=== PATIENT | female | born 1985 | race African-American/Black ===

== ENCOUNTER 2016-11-12 19:59 | Emergency (ER) | payer OTHER ==
[~2016-11-12] VITALS: Ht 175.3 cm; Wt 81.6 kg
[~2016-11-12 19:59] MED LIST: METH-37 PO; TRAM-29 PO
--- NOTE | 2016-11-12 21:37 | PHYS DOC ---
Past Medical History Past Medical History: Asthma Past Surgical History: Appendectomy, Other Additional Past Surgical Histo: tubal Alcohol Use: Rarely Drug Use: None Adult General Chief Complaint Chief Complaint: MECHANICAL FALL HPI HPI Patient is a 31 year old female who presents status post fall on [place]. Patient reports she simply lost her balance and fell, hitting her head. She did not lose consciousness. Since then however, she has been having some pain in her head and neck. She is also having some memory trouble and nausea. No numbness or weakness. Patient has not taken anything for symptoms at home. Review of Systems Review of Systems Constitutional: Denies fever or chills Eyes: Denies change in visual acuity or eye pain HENT: Denies nasal congestion or sore throat Neck: Neck pain Respiratory: Denies cough or shortness of breath Cardiovascular: Denies chest pain GI: Nausea. Denies abdominal pain, vomiting, bloody stools or diarrhea : Denies dysuria or hematuria Musculoskeletal: Back soreness. Denies joint pain Integument: Denies rash or skin lesions Neurologic: Headache, memory problems. Denies focal weakness or sensory changes Current Medications Current Medications Current Medications Medications (Trade) Dose Ordered Sig/Fabiana Start Time Stop Time Status Last Admin Dose Admin Acetaminophen (Tylenol) 1,000 mg 1X ONCE 11/12/16 21:45 11/12/16 21:46 DC 11/12/16 23:02 1,000 MG Ondansetron HCl (Zofran Odt) 4 mg 1X ONCE 11/12/16 21:45 11/12/16 21:46 DC 11/12/16 23:01 4 MG Allergies Allergies Allergies Coded Allergies Type Severity Reaction Last Updated Verified No Known Drug Allergies 06/13/14 No Physical Exam Physical Exam Constitutional: Well developed, well nourished, no acute distress, non-toxic appearance HENT: Normocephalic, atraumatic, bilateral external ears normal Eyes: PERRL, EOMI, conjunctiva normal, no discharge Neck: Normal range of motion, no stridor. Mild generalized posterior TTP, no stepoff or deformity Cardiovascular: Heart rate normal, regular rhythm, no murmur Lungs & Thorax: Bilateral breath sounds clear to auscultation Abdomen: Bowel sounds normal, soft, non-distended, no TTP Skin: Warm, dry, no erythema, no rash Back: No midline tenderness, no stepoff or deformity Extremities: No obvious deformity, no edema Neurologic: Alert and oriented X 3, GCS 15, CN II-XII grossly intact, strength intact and symmetrical throughout, sensation to light touch intact throughout, no dystaxia Current Patient Data Vital Signs Vital Signs Date Time Temp Pulse Resp B/P Pulse Ox O2 Delivery O2 Flow Rate FiO2 11/12/16 23:45 55 100/58 100 Room Air 11/12/16 22:56 18 11/12/16 20:55 98.8 98.8 Lab Values Laboratory Tests Test 11/12/16 21:10 Urine Test Negative (NEG) EKG EKG [] Radiology/Procedures Radiology/Procedures CT C-spine: Impression: No fracture or subluxation cervical vertebrae is seen. CT head: IMPRESSION No acute intracranial abnormality is seen. Course & Med Decision Making Course & Med Decision Making Pertinent Labs and Imaging studies reviewed. (See chart for details) Patient is 31-year-old female who presents with headache, memory problems after fall on [employer] [place]. Possibly sustained a concussion. Will obtain CT head and CT C-spine to rule out more serious pathology. Tylenol and Zofran ordered for relief of symptoms. Imaging results as above. Discussed results with patient , as well as concussion precautions. Patient discharged home with instructions for follow-up and return precautions. Dragon Disclaimer Dragon Disclaimer This electronic medical record was generated, in whole or in part, using a voice recognition dictation system. Departure Departure Impression: Primary Impression: Concussion Disposition: 01 HOME, SELF-CARE Condition: STABLE Referrals: ANGELINE SABILLON MD (PCP) Patient Instructions: Concussion and Brain Injury Additional Instructions: Thank you for allowing us to provide care today in the Emergency Department. Take the provided medication as directed. You can use acetaminophen, ibuprofen, or naproxen for any further pain. Follow the directions on the label. Schedule a follow up appointment with your primary care doctor. Return promptly to the Emergency Department if you develop any new or concerning symptoms. PEYTON PALOMINO MD Nov 12, 2016 21:37
[2016-11-12] MEDS ORDERED: ACETAMINOPHEN 500 MG TABLET PO ONE (21:45)
[2016-11-12] MEDS ORDERED: ONDANSETRON ODT 4 MG TAB.RAPDIS PO ONE (21:45)
[2016-11-12 21:58] LABS: NEG OBC UR NEG; POS OBC UR POS
--- NOTE | 2016-11-12 22:47 | RAD ---
PROCEDURE CT scan of the head without contrast 11/12/2026 HISTORY Head trauma with weakness. TECHNIQUE Unenhanced contiguous, 5 millimeter axial sections were obtained through the head. One or more of the following individualized dose reduction techniques were utilized for this study: 1. Automated exposure control. 2. Adjustment of the mA and/or kV according to patient size. 3. Use of iterative reconstruction technique. FINDINGS The ventricles and sulci are within normal limits in size and configuration. No area of abnormal attenuation is seen involving the brain parenchyma. No extra-axial fluid collection is seen. No skull fracture is noted. IMPRESSION No acute intracranial abnormality is seen. Electronically signed by: Tay Reilly MD (Nov 12, 2016 22:45:51)
[2016-11-12 23:45] VITALS: BP 100/58
== END 2016-11-12 23:54 | disposition home or self-care (01) ==
LOC: ER 19:59
DX: S06.0X0A Concussion without loss of consciousness, initial encounter (principal); J45.909 Unspecified asthma, uncomplicated; W18.09XA Striking against other object with subsequent fall, initial encounter; Y93.89 Activity, other specified; Y99.8 Other external cause status; Y92.89 Other specified places as the place of occurrence of the external cause
CPT/HCPCS: 70450; 72125; 81025; 99284; Q0162; 99285-25

== ENCOUNTER 2017-04-11 16:56 | Emergency (ER) | payer OTHER ==
[~2017-04-11] VITALS: Ht 172.7 cm; Wt 81.6 kg
[2017-04-11 17:10] VITALS: BP 114/70
--- NOTE | 2017-04-11 17:22 | PHYS DOC ---
Past Medical History Past Medical History: Asthma Past Surgical History: Appendectomy, Other Additional Past Surgical Histo: tubal Alcohol Use: Rarely Drug Use: None Adult General Chief Complaint Chief Complaint: SORE THROAT HPI HPI Patient is a 31 year old female presents emergency department stating that she developed a cough congestion with bilateral irritated eyes with generalized body aches and discomfort last night after working. Patient states she's been taken some generic Tylenol for the pain and discomfort. She states that she does have a history of smoking him which she has not been able to smoke much within the last day and a half. She states that she has had chills unsure if she 's had fevers. She states the productive cough this been yellow in color. Patient states she's had a decreased appetite as been drinking plenty of fluids. Review of Systems Review of Systems Constitutional: Denies fever or chills [] Eyes: Denies change in visual acuity, redness, or eye pain [] HENT: nasal congestion and sore throat [] Respiratory: cough denies shortness of breath [] Cardiovascular: No additional information not addressed in HPI [] GI: Denies abdominal pain, nausea, vomiting, bloody stools or diarrhea [] : Denies dysuria or hematuria [] Musculoskeletal: Denies back pain or joint pain [] Integument: Denies rash or skin lesions [] Neurologic: Denies headache, focal weakness or sensory changes [] Endocrine: Denies polyuria or polydipsia [] Allergies Allergies Allergies Coded Allergies Type Severity Reaction Last Updated Verified No Known Drug Allergies 06/13/14 No Physical Exam Physical Exam Constitutional: Well developed, well nourished, no acute distress, non-toxic appearance. [] HENT: Normocephalic, atraumatic, bilateral external ears normal, oropharynx moist, no oral exudates, nose normal. Bilateral tympanic membranes appear to be normal. Throat with redness no erythematous no exudate noted. Eyes: PERRLA, EOMI, conjunctiva normal, no discharge. [] Neck: Normal range of motion, no tenderness, supple, no stridor. [] Cardiovascular:Heart rate regular rhythm, no murmur [] Lungs & Thorax: Bilateral breath sounds clear to auscultation [] Skin: Warm, dry, no erythema, no rash. [] Back: No tenderness Extremities: No tenderness, no cyanosis, no clubbing, ROM intact, no edema. [] Neurologic: Alert and oriented X 3, normal motor function, normal sensory function, no focal deficits noted. [] Psychologic: Affect normal, judgement normal, mood normal. [] Current Patient Data Vital Signs Vital Signs Date Time Temp Pulse Resp B/P (MAP) Pulse Ox O2 Delivery O2 Flow Rate FiO2 04/11/17 17:10 98.8 69 20 98 Room Air 98.8 EKG EKG [] Radiology/Procedures Radiology/Procedures [] Course & Med Decision Making Course & Med Decision Making Pertinent Labs and Imaging studies reviewed. (See chart for details) Spoke with patient regards to stop smoking. Also spoke with patient in regards to a viral type infection. Spoke with her in regards to using Mucinex DM over- the-counter to help with nasal congestion and cough. Tylenol or ibuprofen for fever chills or generalized body aches and discomfort. Recommended plenty of fluids such as water or Gatorade or propel. Signs and symptoms to return back to emergency department provided. Patient will be discharged home in stable condition. [] Dragon Disclaimer Dragon Disclaimer This electronic medical record was generated, in whole or in part, using a voice recognition dictation system. Departure Departure Impression: Primary Impression: Viral infection Disposition: 01 HOME, SELF-CARE Condition: STABLE Referrals: ANGELINE SABILLON MD (PCP) Patient Instructions: Viral Infections, [id number] Additional Instructions: Activity as tolerated. Drink plenty of fluids such as water or Gatorade or propel. Tylenol or ibuprofen for either, chills or malaise body aches and discomfort. Mucinex DM [id number] to help with congestion and cough. Take instructed by architectural examiner. Follow-up through primary care physician in the next 5-7 days. Return back to emergency department for signs and symptoms of become worse. PUSHPA HULL APRN Apr 11, 2017 17:21
[2017-04-11] MEDS ORDERED: IBUPROFEN 800 MG TABLET. PO ONE (17:30)
== END 2017-04-11 17:27 | disposition home or self-care (01) ==
LOC: ER 16:56
DX: B34.9 Viral infection, unspecified (principal); H57.8 Other specified disorders of eye and adnexa; J45.909 Unspecified asthma, uncomplicated; F17.200 Nicotine dependence, unspecified, uncomplicated; Z90.49 Acquired absence of other specified parts of digestive tract
CPT/HCPCS: 99282

== ENCOUNTER 2017-07-22 21:32 | Emergency (ER) | payer OTHER ==
[~2017-07-22] VITALS: Ht 175.3 cm; Wt 81.6 kg
[~2017-07-22 21:32] MED LIST changes: -TRAM-29 PO; +TRAM-48 PO
--- NOTE | 2017-07-22 21:34 | PHYS DOC ---
Past Medical History Past Medical History: Asthma Past Surgical History: Appendectomy, Other Additional Past Surgical Histo: tubal Alcohol Use: Rarely Drug Use: None Adult General Chief Complaint Chief Complaint: HEADACHE HPI HPI Patient is a 32 year old -[place] female who presents with multiple complaints. She states she's had a headache in the left side is been going on for last 4 days. She says this is her normal headache that she gets time to time. She states usually Aleve takes away her headaches and she's been taking it today but has not resolved. She states her nose feels very congested and she is concerned she might have a sinus infection. She denies any confusion but states she's been having "racing thoughts". She denies "bad thoughts". She also has mild right-sided chest pain, she denies it makes it better or worse. She states it's a sharp stabbing pain and does not radiate. She states her mom had a heart attack and the age of 70. She does smoke half pack a day she's done that for the last 10 years. She states she has a history of asthma also. She denies a cough, nausea vomiting or diaphoresis. Review of Systems Review of Systems Constitutional: Denies fever or chills [] Eyes: Denies change in visual acuity, redness, or eye pain [] HENT: Denies nasal congestion or sore throat [] Respiratory: Denies cough or shortness of breath [] Cardiovascular: No additional information not addressed in HPI [] GI: Denies abdominal pain, nausea, vomiting, bloody stools or diarrhea [] : Denies dysuria or hematuria [] Musculoskeletal: Denies back pain or joint pain [] Integument: Denies rash or skin lesions [] Neurologic: Positive for headache, Denies focal weakness or sensory changes [] Endocrine: Denies polyuria or polydipsia [] Current Medications Current Medications Current Medications Medications (Trade) Dose Ordered Sig/[facility] Start Time Stop Time Status Last Admin Dose Admin Acetaminophen (Tylenol) 1,000 mg 1X ONCE 07/22/17 22:00 07/22/17 22:01 DC 07/22/17 22:10 1,000 MG Albuterol/ Ipratropium (Duoneb) 3 ml 1X ONCE 07/22/17 23:45 07/22/17 23:46 DC 07/22/17 23:41 3 ML Cetirizine HCl (ZyrTEC) 10 mg DAILY 07/22/17 22:00 07/22/17 22:10 10 MG Allergies Allergies Allergies Coded Allergies Type Severity Reaction Last Updated Verified No Known Drug Allergies 06/13/14 No Physical Exam Physical Exam Constitutional: Well developed, well nourished, no acute distress, non-toxic appearance. [] HENT: Normocephalic, atraumatic, bilateral external ears normal, oropharynx moist, no oral exudates, nose normal. [] Eyes: PERRLA, EOMI, conjunctiva normal, no discharge. [] Neck: Normal range of motion, no tenderness, supple, no stridor. [] Cardiovascular:Heart rate regular rhythm, no murmur [] Lungs & Thorax: Bilateral breath sounds clear to auscultation [] Abdomen: Bowel sounds normal, soft, no tenderness, no masses, no pulsatile masses. [] Skin: Warm, dry, no erythema, no rash. [] Back: No tenderness, no CVA tenderness. [] Extremities: No tenderness, no cyanosis, no clubbing, ROM intact, no edema. [] Neurologic: Alert and oriented X 3, normal motor function, normal sensory function, no focal deficits noted. [] Psychologic: Affect normal, judgement normal, mood normal. [] Current Patient Data Vital Signs Vital Signs Date Time Temp Pulse Resp B/P (MAP) Pulse Ox O2 Delivery O2 Flow Rate FiO2 07/22/17 23:41 99 Room Air 07/22/17 21:40 98.8 88 18 98.8 Lab Values Laboratory Tests Test 07/22/17 20:49 07/22/17 21:41 07/22/17 21:57 07/23/17 00:22 POC Urine HCG, Qualitative Hcg negative (Negative) Urine Collection Type Unknown Urine Color Yellow Urine Clarity Clear Urine pH 6.5 Urine Specific [place] 1.020 Urine Protein Negative mg/dL (NEG-TRACE) Urine Glucose (UA) Negative mg/dL (NEG) Urine Ketones (Stick) Negative mg/dL (NEG) Urine Blood Negative (NEG) Urine Nitrite Negative (NEG) Urine Bilirubin Negative (NEG) Urine Urobilinogen Dipstick 1.0 mg/dL (0.2 mg/dL) Urine Leukocyte Esterase Negative (NEG) Urine RBC 0 /HPF (0-2) Urine WBC Rare /HPF (0-4) Urine Squamous Epithelial Cells Few /LPF Urine Bacteria 0 /HPF (0-FEW) Urine Mucus Marked /LPF White Blood Count 9.2 x10^3/uL (4.0-11.0) Red Blood Count 4.05 x10^6/uL (3.50-5.40) Hemoglobin 11.5 g/dL (12.0-15.5) L Hematocrit 33.8 % (36.0-47.0) L Mean Corpuscular Volume 84 fL (79-100) Mean Corpuscular Hemoglobin 28 pg (25-35) Mean Corpuscular Hemoglobin Concent 34 g/dL (31-37) Red Cell Distribution Width 12.6 % (11.5-14.5) Platelet Count 295 x10^3/uL (140-400) Neutrophils (%) (Auto) 46 % (31-73) Lymphocytes (%) (Auto) 42 % (24-48) Monocytes (%) (Auto) 8 % (0-9) Eosinophils (%) (Auto) 2 % (0-3) Basophils (%) (Auto) 1 % (0-3) Neutrophils # (Auto) 4.3 x10^3uL (1.8-7.7) Lymphocytes # (Auto) 3.9 x10^3/uL (1.0-4.8) Monocytes # (Auto) 0.8 x10^3/uL (0.0-1.1) Eosinophils # (Auto) 0.2 x10^3/uL (0.0-0.7) Basophils # (Auto) 0.1 x10^3/uL (0.0-0.2) Prothrombin Time 12.9 SEC (11.7-14.0) Prothrombin Time INR 1.0 (0.8-1.1) Sodium Level 140 mmol/L (136-145) Potassium Level 3.5 mmol/L (3.5-5.1) Chloride Level 103 mmol/L (98-107) Carbon Dioxide Level 26 mmol/L (21-32) Anion Gap 11 (6-14) Blood Urea Nitrogen 11 mg/dL (7-20) Creatinine 0.6 mg/dL (0.6-1.0) Estimated GFR (Cockcroft-Gault) 141.1 Glucose Level 112 mg/dL (70-99) H Calcium Level 9.1 mg/dL (8.5-10.1) Total Bilirubin 0.2 mg/dL (0.2-1.0) Direct Bilirubin < 0.1 mg/dL (0.0-0.2) Aspartate Amino Transferase (AST) 13 U/L (15-37) L Alanine Aminotransferase (ALT) 18 U/L (14-59) Alkaline Phosphatase 91 U/L (46-116) Creatine Kinase 157 U/L (26-192) Creatine Kinase MB (Mass) 1.3 ng/mL (0.0-3.6) Creatine Kinase MB Relative Index 0.8 % (0-4) Troponin I Quantitative < 0.017 ng/mL (0.000-0.055) < 0.017 ng/mL (0.000-0.055) US-Jei-Q-Type Natriuretic Peptide 25 pg/mL (0-124) Total Protein 7.5 g/dL (6.4-8.2) Albumin 3.4 g/dL (3.4-5.0) Lipase 100 U/L (73-393) Laboratory Tests 07/22/17 21:57 Laboratory Tests 07/22/17 21:57 EKG EKG EKG shows sinus rhythm with rate of [address] elevations, T-wave inversions noted in leads 3, normal axis, QTC 406 ms, as interpreted by me. EKG similar to one performed on March 27, 2015 with T-wave inversions in lead 3 and V3 with tachycardia. Radiology/Procedures Radiology/Procedures One view chest x-ray did not show any focal consolidations, pneumothorax, or bony abnormalities, as interpreted by me. Impressions: Headache Course & Med Decision Making Course & Med Decision Making Pertinent Labs and Imaging studies reviewed. (See chart for details) Her headache is likely caused from sinusitis. She felt better with Tylenol and Zyrtec. She can continue these at home. She's also be discharged with a Z-Estevan. Her chest discomfort resolved after an albuterol treatment. I did repeat a 3 hour troponin which was also negative. She is instructed to continue using her albuterol at home as needed. Return precautions given. She is agreeable to the plan and being discharged in stable condition at this time. Dragon Disclaimer Dragon Disclaimer This electronic medical record was generated, in whole or in part, using a voice recognition dictation system. Departure Departure Impression: Primary Impression: Head ache Disposition: 01 HOME, SELF-CARE Condition: STABLE Referrals: ANGELINE SABILLON MD (PCP) Patient Instructions: Sinus Headache, [id number] Additional Instructions: Your headache improved with Tylenol and Zyrtec. You likely have a sinus type headache. Being discharged home. You can take Tylenol and purchase over-the- counter Zyrtec to help with her symptoms. You are also being discharged with a Z -Estevan which is an antibiotic. Please follow instructions on the prescription. Your chest discomfort improved with albuterol and your blood work did not show any acute abnormalities. Please follow-up with her primary care physician within the next few days. If your symptoms return please return back to ER.Use your inhaler as needed at home for your chest discomfort. Scripts Albuterol Sulfate (PROAIR HFA INHALER) 8.5 Gm Hfa.aer.ad 1-2 PUFF INH PRN Q6HRS Y for SHORTNESS OF BREATH, #1 INHALER 1 Refill Prov: MELISSA SEBASTIAN MD 07/23/17 Azithromycin (AZITHROMYCIN TABLET) 250 Mg Tablet 1 PKG PO UD, #6 TAB Prov: MELISSA SEBASTIAN MD 07/23/17 Problem Qualifiers Primary Impression: Head ache Headache type: unspecified Headache chronicity pattern: episodic headache Intractability: not intractable Qualified Codes: R51 - Headache MELISSA SEBASTIAN MD Jul 22, 2017 21:34
[2017-07-22 21:55] LABS: BILIRUBIN,URINE NEGATIVE (NEG); GLUCOSE,URINE NEGATIVE (NEG); NITRITE,URINE NEGATIVE (NEG); PH,URINE 6.5; PROTEIN,URINE NEGATIVE (NEG-TRACE)
[2017-07-22] MEDS ORDERED: IPRATRPIUM/ALBUTEROL 0.5/2.5MG 3 ML NEBU. NEB ONE ×3 (22:00→23:45)
[2017-07-22] MEDS ORDERED: CETIRIZINE HCL 10 MG TABLET. PO SCH (22:00)
[2017-07-22] MEDS ORDERED: ACETAMINOPHEN 500 MG TABLET PO ONE (22:00)
[2017-07-22 22:04] LABS: BACTERIA,URINE 0 /HPF (0-FEW); RBC,URINE 0 /HPF (0-2); SQUAMOUS EPITHELIAL CELL,UR FEW /LPF; WBC,URINE RARE /HPF (0-4)
[2017-07-22 22:11] LABS: BASO # 0.1 x10^3/uL (0.0-0.2); BASO % 1 % (0-3); EOS % 2 % (0-3); HEMATOCRIT 33.8 % (36.0-47.0); HEMOGLOBIN 11.5 g/dL (12.0-15.5); LYMPH # 3.9 x10^3/uL (1.0-4.8); LYMPH % 42 % (24-48); MEAN CORPUSCULAR HEMOGLOBIN 28 pg (25-35); MEAN CORPUSCULAR HGB CONC 34 g/dL (31-37); MEAN CORPUSCULAR VOLUME 84 fL (79-100); MONO % 8 % (0-9); NEUT % 46 % (31-73); PLATELET COUNT 295 x10^3/uL (140-400); RED BLOOD COUNT 4.05 x10^6/uL (3.50-5.40); RED CELL DISTRIBUTION WIDTH 12.6 % (11.5-14.5); WHITE BLOOD COUNT 9.2 x10^3/uL (4.0-11.0)
[2017-07-22 22:16] LABS: PROTHROMBIN TIME PATIENT 12.9 SEC (11.7-14.0)
[2017-07-22 22:21] LABS: ANION GAP 11 (6-14); BLOOD UREA NITROGEN 11 mg/dL (7-20); CALCIUM 9.1 mg/dL (8.5-10.1); CARBON DIOXIDE 26 mmol/L (21-32); CHLORIDE 103 mmol/L (98-107); CREATININE 0.6 mg/dL (0.6-1.0); GFR 141.1; GLUCOSE 112 mg/dL (70-99); POTASSIUM 3.5 mmol/L (3.5-5.1); SODIUM 140 mmol/L (136-145)
[2017-07-22 22:28] LABS: ALBUMIN 3.4 g/dL (3.4-5.0); ALK PHOS 91 U/L (46-116); ALT (SGPT) 18 U/L (14-59); AST (SGOT) 13 U/L (15-37); DIRECT BILIRUBIN < 0.1 mg/dL (0.0-0.2); TOTAL BILIRUBIN 0.2 mg/dL (0.2-1.0); TOTAL PROTEIN 7.5 g/dL (6.4-8.2)
[2017-07-22 22:33] LABS: CKMB MASS 1.3 ng/mL (0.0-3.6)
[2017-07-23] MEDS ORDERED: AZIT250T6 PO (01:36)
[2017-07-23 01:39] VITALS: BP 112/61
[2017-07-23] MEDS ORDERED: PROAIR HFA8.5 GM INH (01:41)
--- NOTE | 2017-07-23 07:14 | EKG ---
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
--- NOTE | 2017-07-23 07:30 | RAD ---
Portable chest, 07/22/2017: History: Shortness of breath, anxiety, chest pain Comparison is made to a study from 05/19/2016. The heart size and pulmonary vascularity are normal. No pulmonary or infiltrates seen. There is no evidence of pleural fluid. IMPRESSION: No acute cardiopulmonary abnormality is detected.
== END 2017-07-23 02:03 | disposition home or self-care (01) ==
LOC: ER 21:32
DX: R51 Headache (principal); R09.81 Nasal congestion; R07.89 Other chest pain; J45.909 Unspecified asthma, uncomplicated; F17.200 Nicotine dependence, unspecified, uncomplicated
CPT/HCPCS: 36415; 71010; 80048; 80076; 81001; 81025; 82553; 83690; 83880; 84484; 85025; 85610; 93005; 94250; 94640; 99285; J7620

== ENCOUNTER 2018-03-31 19:35 | Emergency (ER) | payer OTHER ==
[2018-03-31 20:18] LABS: URINE HCG POC HCG NEGATIVE (Negative)
== END 2018-03-31 20:50 | disposition home or self-care (01) ==
LOC: ER 19:35
DX: L70.0 Acne vulgaris (principal); R11.0 Nausea; J45.909 Unspecified asthma, uncomplicated
CPT/HCPCS: 81025; 99283

== ENCOUNTER 2018-07-05 23:36 | Emergency (ER) | payer OTHER ==
[~2018-07-05] VITALS: Ht 167.6 cm; Wt 72.6 kg
[~2018-07-05 23:36] MED LIST changes: +AZIT250T6 PO; +ONDA4TAB10 SL; +PROAIR HFA8.5 GM INH
[2018-07-05] MEDS ORDERED: IV NORMAL SALINE 1000ML BAG 1,000 ML IV SCH (23:45)
[2018-07-05] MEDS ORDERED: ONDANSETRON PF 4 MG/2 ML VIAL. IV ONE (23:55)
[2018-07-06 00:09] LABS: BASO % 1 % (0-3); EOS # 0.2 x10^3/uL (0.0-0.7); EOS % 3 % (0-3); HEMOGLOBIN 11.8 g/dL (12.0-15.5); LYMPH # 3.1 x10^3/uL (1.0-4.8); LYMPH % 42 % (24-48); MEAN CORPUSCULAR HEMOGLOBIN 29 pg (25-35); MEAN CORPUSCULAR HGB CONC 34 g/dL (31-37); MEAN CORPUSCULAR VOLUME 86 fL (79-100); MONO # 0.5 x10^3/uL (0.0-1.1); MONO % 6 % (0-9); NEUT # 3.6 x10^3uL (1.8-7.7); NEUT % 48 % (31-73); PLATELET COUNT 401 x10^3/uL (140-400); RED BLOOD COUNT 4.08 x10^6/uL (3.50-5.40); RED CELL DISTRIBUTION WIDTH 14.5 % (11.5-14.5); WHITE BLOOD COUNT 7.4 x10^3/uL (4.0-11.0)
[2018-07-06 00:24] LABS: CALCIUM 8.7 mg/dL (8.5-10.1); CREATININE 0.7 mg/dL (0.6-1.0); GFR 118.1; POTASSIUM 3.5 mmol/L (3.5-5.1)
[2018-07-06 00:29] LABS: ALBUMIN 3.6 g/dL (3.4-5.0); ALBUMIN/GLOBULIN RATIO 0.8 (1.0-1.7); MAGNESIUM 2.1 mg/dL (1.8-2.4); TOTAL BILIRUBIN 0.2 mg/dL (0.2-1.0); TOTAL PROTEIN 8.1 g/dL (6.4-8.2)
[2018-07-06 00:47] LABS: BILIRUBIN,URINE NEGATIVE (NEG); CLARITY,URINE CLOUDY; COLOR,URINE YELLOW; NITRITE,URINE NEGATIVE (NEG); PH,URINE 5.5; PROTEIN,URINE NEGATIVE (NEG-TRACE); UROBILINOGEN,URINE 0.2 mg/dL (0.2 mg/dL)
[2018-07-06 00:52] LABS: BARBITURATES NEG (NEG); BENZODIAZEPINES NEG (NEG); CANNABINOIDS NEG (NEG); COCAINE NEG (NEG); METHADONE NEG (NEG); OPIATES NEG (NEG); PHENCYCLIDINE NEG (NEG)
[2018-07-06 01:10] LABS: AMPHETAMINE/METHAMPHETAMINE NEG (NEG)
[2018-07-06 01:14] LABS: BACTERIA,URINE 0 /HPF (0-FEW); RBC,URINE 0 /HPF (0-2); SQUAMOUS EPITHELIAL CELL,UR FEW /LPF; WBC,URINE 0 /HPF (0-4)
[2018-07-06] MEDS ORDERED: NAPR-683 PO (01:18)
--- NOTE | 2018-07-06 01:18 | PHYS DOC ---
Past Medical History Past Medical History: Asthma, Diabetes-Type II Past Surgical History: Appendectomy, Other Additional Past Surgical Histo: tubal Alcohol Use: Rarely Drug Use: None Adult General Chief Complaint Chief Complaint: ALCOHOL INTOXICATION HPI HPI Patient is a 32-year-old female who presents with report of chronic right arm pain and states that she had a couple of drinks of alcohol tonight. She states that she did not drink very much. Patient is noted to have very slurred speech however. She denies chest pain or shortness of breath. She also denies any abdominal pain, nausea or vomiting. She rates the pain in her shoulder and a 7 out of 10. She states the pain is worsened with movement of the shoulder and palpation. She denies any recent injuries. Review of Systems Review of Systems Constitutional: Denies fever or chills [] Respiratory: Denies cough or shortness of breath [] Cardiovascular: Denies chest pain[] GI: Denies abdominal pain, nausea, vomiting [] Musculoskeletal: Complains of right shoulder and arm pain, chronic[] All other systems were reviewed and found to be within normal limits, except as documented in this note. Current Medications Current Medications Current Medications Medications (Trade) Dose Ordered Sig/Fabiana Start Time Stop Time Status Last Admin Dose Admin Ondansetron HCl (Zofran) 4 mg 1X ONCE 07/05/18 23:55 07/05/18 23:56 DC 07/05/18 23:55 4 MG Sodium Chloride 1,000 ml @ 1,000 mls/hr Q1H 07/05/18 23:45 07/06/18 00:44 DC 07/05/18 23:45 1,000 MLS/HR Allergies Allergies Allergies Coded Allergies Type Severity Reaction Last Updated Verified No Known Drug Allergies 06/13/14 No Physical Exam Physical Exam Constitutional: Well developed, well nourished, no acute distress, with strong smell of alcohol on patient's breath. [] Neck: Normal range of motion, no tenderness, supple, no stridor. [] Cardiovascular:Heart rate regular rhythm [] Lungs & Thorax: Bilateral breath sounds clear to auscultation [] Abdomen: Bowel sounds normal, soft, no tenderness. [] Skin: Warm, dry, no erythema, no rash. [] Extremities: Right shoulder demonstrates no deformity. Patient does report to diffuse tenderness to palpation and complains of pain with flexion and abduction. [] Neurologic: Awake and alert, obviously intoxicated. No focal deficits noted. [] Current Patient Data Vital Signs Vital Signs Date Time Temp Pulse Resp B/P (MAP) Pulse Ox O2 Delivery O2 Flow Rate FiO2 07/06/18 00:36 80 18 105/59 (74) 96 07/05/18 23:43 98.6 Room Air 98.6 Lab Values Laboratory Tests Test 07/05/18 23:42 07/06/18 00:01 07/06/18 00:20 07/06/18 00:28 White Blood Count 7.4 x10^3/uL (4.0-11.0) Red Blood Count 4.08 x10^6/uL (3.50-5.40) Hemoglobin 11.8 g/dL (12.0-15.5) L Hematocrit 35.0 % (36.0-47.0) L Mean Corpuscular Volume 86 fL (79-100) Mean Corpuscular Hemoglobin 29 pg (25-35) Mean Corpuscular Hemoglobin Concent 34 g/dL (31-37) Red Cell Distribution Width 14.5 % (11.5-14.5) Platelet Count 401 x10^3/uL (140-400) H Neutrophils (%) (Auto) 48 % (31-73) Lymphocytes (%) (Auto) 42 % (24-48) Monocytes (%) (Auto) 6 % (0-9) Eosinophils (%) (Auto) 3 % (0-3) Basophils (%) (Auto) 1 % (0-3) Neutrophils # (Auto) 3.6 x10^3uL (1.8-7.7) Lymphocytes # (Auto) 3.1 x10^3/uL (1.0-4.8) Monocytes # (Auto) 0.5 x10^3/uL (0.0-1.1) Eosinophils # (Auto) 0.2 x10^3/uL (0.0-0.7) Basophils # (Auto) 0.0 x10^3/uL (0.0-0.2) Sodium Level 141 mmol/L (136-145) Potassium Level 3.5 mmol/L (3.5-5.1) Chloride Level 108 mmol/L (98-107) H Carbon Dioxide Level 21 mmol/L (21-32) Anion Gap 12 (6-14) Blood Urea Nitrogen 12 mg/dL (7-20) Creatinine 0.7 mg/dL (0.6-1.0) Estimated GFR (Cockcroft-Gault) 118.1 BUN/Creatinine Ratio 17 (6-20) Glucose Level 90 mg/dL (70-99) Calcium Level 8.7 mg/dL (8.5-10.1) Magnesium Level 2.1 mg/dL (1.8-2.4) Total Bilirubin 0.2 mg/dL (0.2-1.0) Aspartate Amino Transferase (AST) 32 U/L (15-37) Alanine Aminotransferase (ALT) 24 U/L (14-59) Alkaline Phosphatase 100 U/L (46-116) Total Protein 8.1 g/dL (6.4-8.2) Albumin 3.6 g/dL (3.4-5.0) Albumin/Globulin Ratio 0.8 (1.0-1.7) L Ethyl Alcohol Level 364 mg/dL (0-10) H Urine Collection Type Unknown Urine Color Yellow Urine Clarity Cloudy Urine pH 5.5 Urine Specific [place] 1.010 Urine Protein Negative mg/dL (NEG-TRACE) Urine Glucose (UA) Negative mg/dL (NEG) Urine Ketones (Stick) Negative mg/dL (NEG) Urine Blood Negative (NEG) Urine Nitrite Negative (NEG) Urine Bilirubin Negative (NEG) Urine Urobilinogen Dipstick 0.2 mg/dL (0.2 mg/dL) Urine Leukocyte Esterase Negative (NEG) Urine RBC 0 /HPF (0-2) Urine WBC 0 /HPF (0-4) Urine Squamous Epithelial Cells Few /LPF Urine Bacteria 0 /HPF (0-FEW) Urine Opiates Screen Neg (NEG) Urine Methadone Screen Neg (NEG) Urine Barbiturates Neg (NEG) Urine Phencyclidine Screen Neg (NEG) Urine Amphetamine/Methamphetamine Neg (NEG) Urine Benzodiazepines Screen Neg (NEG) Urine Cocaine Screen Neg (NEG) Urine Cannabinoids Screen Neg (NEG) Urine Ethyl Alcohol Pos (NEG) POC Urine HCG, Qualitative Hcg negative (Negative) Laboratory Tests 07/05/18 23:42 Laboratory Tests 07/06/18 00:01 EKG EKG [] Radiology/Procedures Radiology/Procedures [] Course & Med Decision Making Course & Med Decision Making Pertinent Labs and Imaging studies reviewed. (See chart for details) [] Dragon Disclaimer Dragon Disclaimer This electronic medical record was generated, in whole or in part, using a voice recognition dictation system. Departure Departure Impression: Primary Impression: Alcohol intoxication Additional Impression: Chronic right shoulder pain Disposition: 01 HOME, SELF-CARE Condition: STABLE Referrals: NUIRS MATT (PCP) Patient Instructions: Alcohol Intoxication, Shoulder Pain Scripts Naproxen (NAPROSYN) 500 Mg Tablet 1 TAB PO BID PRN for PAIN, #20 TAB Prov: JASMEET VALLEJO Jr. DO 07/06/18 Problem Qualifiers Primary Impression: Alcohol intoxication Complication of substance-induced condition: uncomplicated Qualified Codes: F10.920 - Alcohol use, unspecified with intoxication, uncomplicated JASMEET VALLEJO Jr. DO Jul 06, 2018 01:18
[2018-07-06 02:30] VITALS: BP 110/60
== END 2018-07-06 03:15 | disposition home or self-care (01) ==
LOC: ER 23:36
DX: G89.29 Other chronic pain (principal); M25.511 Pain in right shoulder; F10.920 Alcohol use, unspecified with intoxication, uncomplicated; E11.9 Type 2 diabetes mellitus without complications; J45.909 Unspecified asthma, uncomplicated
CPT/HCPCS: 36415; 80053; 80307; 81001; 81025; 83735; 85025; 96374; 99284; G0480; J2405; J7030; G0479

== ENCOUNTER 2018-12-25 01:26 | Inpatient (IN) | payer OTHER ==
[~2018-12-25] VITALS: Ht 172.7 cm; Wt 72.6 kg
[~2018-12-25 01:26] MED LIST changes: +ALBU2.5V8 INH; +NAPR-683 PO; -PROAIR HFA8.5 GM INH
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
[2018-12-25 02:13] LABS: BASO # 0.1 x10^3/uL (0.0-0.2); BASO % 1 % (0-3); EOS # 0.1 x10^3/uL (0.0-0.7); EOS % 1 % (0-3); HEMATOCRIT 41.4 % (36.0-47.0); HEMOGLOBIN 13.4 g/dL (12.0-15.5); LYMPH # 3.6 x10^3/uL (1.0-4.8); LYMPH % 47 % (24-48); MEAN CORPUSCULAR HEMOGLOBIN 28 pg (25-35); MEAN CORPUSCULAR HGB CONC 33 g/dL (31-37); MEAN CORPUSCULAR VOLUME 86 fL (79-100); MONO # 0.3 x10^3/uL (0.0-1.1); MONO % 4 % (0-9); NEUT # 3.6 x10^3uL (1.8-7.7); NEUT % 47 % (31-73); PLATELET COUNT 404 x10^3/uL (140-400); RED BLOOD COUNT 4.79 x10^6/uL (3.50-5.40); WHITE BLOOD COUNT 7.6 x10^3/uL (4.0-11.0)
[2018-12-25 02:16] LABS: BILIRUBIN,URINE NEGATIVE (NEG); CLARITY,URINE CLEAR; COLOR,URINE YELLOW; NITRITE,URINE NEGATIVE (NEG); PROTEIN,URINE NEGATIVE (NEG-TRACE); UROBILINOGEN,URINE 0.2 mg/dL (0.2 mg/dL)
[2018-12-25 02:22] LABS: BACTERIA,URINE 0 /HPF (0-FEW); SQUAMOUS EPITHELIAL CELL,UR FEW /LPF; WBC,URINE 0 /HPF (0-4)
[2018-12-25 02:23] LABS: AMORPHOUS SEDIMENT,UR PRESENT /HPF; BARBITURATES NEG (NEG); BENZODIAZEPINES NEG (NEG); CANNABINOIDS NEG (NEG); COCAINE NEG (NEG); HYALINE CASTS, URINE OCCASIONAL /HPF; METHADONE NEG (NEG); OPIATES NEG (NEG); PHENCYCLIDINE NEG (NEG)
[2018-12-25 02:25] LABS: AMPHETAMINE/METHAMPHETAMINE NEG (NEG); CALCIUM 8.8 mg/dL (8.5-10.1); CREATININE 0.8 mg/dL (0.6-1.0); GFR 100.6; POTASSIUM 3.7 mmol/L (3.5-5.1)
[2018-12-25 02:30] LABS: ALBUMIN 4.1 g/dL (3.4-5.0); ALBUMIN/GLOBULIN RATIO 0.9 (1.0-1.7); MAGNESIUM 2.2 mg/dL (1.8-2.4); TOTAL BILIRUBIN 0.4 mg/dL (0.2-1.0); TOTAL PROTEIN 8.9 g/dL (6.4-8.2)
[2018-12-25] MEDS ORDERED: KETOROLAC 15 MG/ML VIAL. IV ONE (02:30)
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
[2018-12-25 03:14] LABS: ACETAMIN < 2 mcg/ml (10-30); SALIC 2.9 mg/dL (2.8-20.0)
[2018-12-25] MEDS ORDERED: KETOROLAC 30 MG/ML VIAL. IM ONE (04:00)
[2018-12-25] MEDS ORDERED: THIAMINE 100 MG TABLET. PO ONE (05:30)
[2018-12-25] MEDS ORDERED: MULTIVIT INFUSN,ADULT 4,VIT K 10 ML, FOLIC ACID INJ 1 MG in IV NORMAL SALINE 1000ML BAG... IV ONE (05:30)
[2018-12-25 06:25] VITALS: BP 106/54
[2018-12-25] MEDS ORDERED: LORazepam 1 MG TABLET PO PRN ×4 (07:00→11:45)
[2018-12-25] MEDS ORDERED: NITROGLYCERIN SUBLINGUAL 0.4 MG BOTTLE OF 25. SL PRN (07:00)
[2018-12-25] MEDS ORDERED: ACETAMINOPHEN 325 MG TABLET. PO PRN (07:00)
[2018-12-25] MEDS: PANTOPRAZOLE 40 MG TABLET.DR. PO SCH (07:20)
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
--- NOTE | 2018-12-25 08:48 | NUR ---
Pt bed alarm set. Patient stated to nurse "I dont need help walking, would you leave my room and close the door behind you". Educated patient why her bed alarm was on and why we should help her to and from the restroom. Patient refused.
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
--- NOTE | 2018-12-25 10:40 | EKG ---
[facility] [address] [place] [address] Test Date: 2018-12-25 Test Time: 02:49:26 Pat Name: JEFERSON OLIVEROS Department: Room: Gender: F Alterations Supervisor: : [id number] Requested By: CIARRA MORALES Order Number: [id number] Reading MD: Measurements Intervals Equality Rate: P: VT: QRS: QRSD: T: QT: QTc: Interpretive Statements
[2018-12-25 11:00] VITALS: BP 94/71
[2018-12-25] MEDS ORDERED: cloNIDine HCL 0.1 MG TABLET PO PRN (11:45)
[2018-12-25] MEDS ORDERED: diphenhydrAMINE 50 MG/ML VIAL IVP PRN (11:45)
[2018-12-25] MEDS ORDERED: HALOPERIDOL LACTATE 5 MG/ML VIAL. IVP PRN (11:45)
[2018-12-25] MEDS: ACETAMINOPHEN 325 MG TABLET. PO PRN ×2 (11:52→16:11)
[2018-12-25] MEDS: ENOXAPARIN 40 MG/0.4 ML SYRINGE. SQ SCH (12:57)
[2018-12-25 13:34] LABS: BARBITURATES NEG (NEG); BENZODIAZEPINES NEG (NEG); CANNABINOIDS NEG (NEG); COCAINE NEG (NEG); METHADONE NEG (NEG); OPIATES NEG (NEG); PHENCYCLIDINE NEG (NEG)
[2018-12-25 13:35] LABS: AMPHETAMINE/METHAMPHETAMINE NEG (NEG)
[2018-12-25 15:00] VITALS: BP 117/68
[2018-12-25] MEDS: ONDANSETRON PF 4 MG/2 ML VIAL. IV PRN ×2 (16:07→20:43)
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
[2018-12-25 19:00] VITALS: BP 112/65
[2018-12-25] MEDS ORDERED: ZOLPIDEM 5 MG TABLET. PO PRN (20:45)
[2018-12-25] MEDS ORDERED: ONDANSETRON PF 4 MG/2 ML VIAL. IV PRN (20:45)
[2018-12-25 23:00] VITALS: BP 121/75
[2018-12-26 03:00] VITALS: BP 122/64
[2018-12-26] MEDS: PANTOPRAZOLE 40 MG TABLET.DR. PO SCH (06:10)
[2018-12-26 07:00] VITALS: BP 143/64
[2018-12-26] MEDS: MULTIVIT INFUSN,ADULT 4,VIT K 10 ML, FOLIC ACID INJ 1 MG in IV NORMAL SALINE 1000ML BAG... IV SCH (09:12)
[2018-12-26] MEDS: THIAMINE 100 MG TABLET. PO SCH (09:12)
[2018-12-26 11:00] VITALS: BP 145/64
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
[2018-12-26] MEDS ORDERED: Pantoprazole PO (12:06)
[2018-12-26] MEDS ORDERED: FOLI1TAB16 PO (12:06)
[2018-12-26] MEDS ORDERED: THIA100T22 PO (12:06)
--- NOTE | 2018-12-26 12:07 | DISCH ---
DISCHARGE INSTRUCTIONS Condition on Discharge Condition on Discharge: Stable Activity After Discharge Activity Instructions for Disc: Activity as tolerated Exercise Instruction after Dis: Walk 10 min, 3 x per day Driving Instructions after Dis: Do not drive Diet after Discharge Diet after Discharge: Regular Checks after Discharge Checks after discharge: Check blood press - daily Contacting the DRKeith after DC Call your doctor for: If your condition worsens Warfarin Follow-Up Warfarin Follow UP: ATTEND AA DAILY ALONDRA CHANDLER MD Dec 26, 2018 12:07
[2018-12-26] MEDS: ENOXAPARIN 40 MG/0.4 ML SYRINGE. SQ SCH (12:57)
[2018-12-26 19:00] VITALS: BP 120/75
[2018-12-26] MEDS: ACETAMINOPHEN 325 MG TABLET. PO PRN (20:03)
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
[2018-12-26 23:00] VITALS: BP 142/55
[2018-12-27 03:00] VITALS: BP 108/55
[2018-12-27 07:00] VITALS: BP 119/74
[2018-12-27] MEDS: ACETAMINOPHEN 325 MG TABLET. PO PRN (07:52)
[2018-12-27] MEDS: PANTOPRAZOLE 40 MG TABLET.DR. PO SCH (07:52)
[2018-12-27] MEDS: THIAMINE 100 MG TABLET. PO SCH (07:52)
[2018-12-27] MEDS: MULTIVIT INFUSN,ADULT 4,VIT K 10 ML, FOLIC ACID INJ 1 MG in IV NORMAL SALINE 1000ML BAG... IV SCH (09:00)
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
[2018-12-27 11:00] VITALS: BP 113/60
--- NOTE | 2018-12-27 11:15 | NUR ---
Patient discharged home, transportation provided with [employer]. Wheelchair was provided for taking out, but opted to walk. Patient related that she had received all discharge instructions, and understood them, denied questions.
[2018-12-31] MEDS ORDERED: FOLIC ACID 1 MG TABLET. PO SCH (09:00)
== END 2018-12-27 11:15 | disposition home or self-care (01) | DRG 897 ==
LOC: EEVIPCON 01:26 → ER 01:26 → 5 NORTH 04:39 → OBSVTOIN 08:21
PROVIDERS: ADMIT Internal Medicine; ATTEND Internal Medicine
DX: F10.129 Alcohol abuse with intoxication, unspecified (principal); E11.9 Type 2 diabetes mellitus without complications; J45.909 Unspecified asthma, uncomplicated; Y90.8 Blood alcohol level of 240 mg/100 ml or more; Z82.49 Family history of ischemic heart disease and other diseases of the circulatory system; Z90.49 Acquired absence of other specified parts of digestive tract
CPT/HCPCS: 36415; 70450; 71045; 80053; 80307; 80329; 81001; 81025; 82962; 83735; 83880; 84484; 85025; 85610; 93005; 96365; G0378; G0379; G0480; G6039; J2405; J7030; 99285-25

== ENCOUNTER 2019-03-19 23:01 | Emergency (ER) | payer OTHER ==
[~2019-03-19] VITALS: Ht 170.2 cm; Wt 72.6 kg
[~2019-03-19 23:01] MED LIST changes: +FOLI1TAB16 PO; +Pantoprazole PO; +THIA100T22 PO
[2019-03-19 23:35] LABS: BILIRUBIN,URINE NEGATIVE (NEG); CLARITY,URINE CLEAR; COLOR,URINE YELLOW; NITRITE,URINE NEGATIVE (NEG); PROTEIN,URINE NEGATIVE (NEG-TRACE); UROBILINOGEN,URINE 0.2 mg/dL (0.2 mg/dL)
[2019-03-19 23:41] LABS: AMPHETAMINE/METHAMPHETAMINE NEG (NEG); BARBITURATES NEG (NEG); BENZODIAZEPINES NEG (NEG); CANNABINOIDS NEG (NEG); COCAINE NEG (NEG); METHADONE NEG (NEG); OPIATES NEG (NEG); PHENCYCLIDINE NEG (NEG)
[2019-03-19 23:42] LABS: BACTERIA,URINE FEW /HPF (0-FEW); RBC,URINE RARE /HPF (0-2); SQUAMOUS EPITHELIAL CELL,UR FEW /LPF; WBC,URINE 0 /HPF (0-4)
[2019-03-19] MEDS ORDERED: FAMOTIDINE 20 MG/2 ML VIAL IVP ONE (23:45)
[2019-03-19] MEDS ORDERED: ONDANSETRON PF 4 MG/2 ML VIAL. IV ONE (23:45)
[2019-03-19] MEDS ORDERED: KETOROLAC 15 MG/ML VIAL. IV ONE (23:45)
--- NOTE | 2019-03-19 23:49 | PHYS DOC ---
Past Medical History Past Medical History: Alcoholism, Asthma, Diabetes-Type II Past Medical History Limited due to ETOH intoxication Past Surgical History: Appendectomy, Other Additional Past Surgical Histo: tubal Past Surgical History Limited due to ETOH intoxication Smoking: Cigarettes Alcohol Use: Rarely Drug Use: None Social History Limited due to ETOH intoxication Adult General Chief Complaint Chief Complaint: ALCOHOL INTOXICATION HPI HPI 33-year-old female presents via EMS with report of binge drinking for the last 7 days. Patient does report some increased life stressors. Patient had initially expressed need for some "help" to EMS. Upon arrival patient now denying request. Patient does report some menstrual cramps currently and patient also reports some numbness and tingling in bilateral arms and legs when patient has a stressful event. Patient does report some history of anxiety. Denies fever or chills. Denies known trauma. Patient does report some intermittent nausea. Denies . Denies suicidal or homicidal ideation. History of present illness limited due to acute intoxication. Review of Systems Review of Systems Constitutional: Denies fever or chills [] GI: Reports nausea Neurologic: Denies headache or focal weakness; reports intermittent bilateral UE and LE numbness Psychiatric: ETOH abuse, Denies suicidal or homicidal ideation Review of systems limited due to acute intoxication. Current Medications Current Medications Current Medications Medications (Trade) Dose Ordered Sig/Fabiana Start Time Stop Time Status Last Admin Dose Admin Famotidine (Pepcid Vial) 20 mg 1X ONCE 03/19/19 23:45 03/19/19 23:46 DC 03/20/19 00:04 20 MG Ketorolac Tromethamine (Toradol 15mg Vial) 15 mg 1X ONCE 03/19/19 23:45 03/19/19 23:46 DC 03/20/19 00:05 15 MG Multivitamins 10 ml/Thiamine HCl 100 mg/Folic Acid 1 mg/Sodium Chloride 1,011.2 ml @ 1,000.088 mls/hr 1X ONCE 03/20/19 00:00 03/20/19 01:00 DC 03/19/19 23:57 1,000.088 MLS/HR Ondansetron HCl (Zofran) 4 mg 1X ONCE 03/19/19 23:45 03/19/19 23:46 DC 03/20/19 00:04 4 MG Sodium Chloride 1,000 ml @ 1,000 mls/hr 1X ONCE 03/20/19 01:00 03/20/19 01:59 DC 03/20/19 00:56 1,000 MLS/HR Allergies Allergies Allergies Coded Allergies Type Severity Reaction Last Updated Verified No Known Drug Allergies 06/13/14 No Physical Exam Physical Exam Constitutional: Well developed, well nourished, intoxicated HENT: Normocephalic, atraumatic, oropharynx moist Eyes: Conjunctiva normal, no discharge. [] Neck: Normal range of motion, no tenderness, supple, no meningeal signs Cardiovascular: Heart rate regular rhythm, no murmur [] Lungs & Thorax: Bilateral breath sounds clear to auscultation [] Abdomen: Soft, no tenderness Skin: Warm, dry, no erythema, no rash. [] Extremities: No tenderness, ROM intact Neurologic: Speech slurred, Intoxicated, alert Psychologic: Affect flat, judgement abnormal Current Patient Data Vital Signs Vital Signs Date Time Temp Pulse Resp B/P (MAP) Pulse Ox O2 Delivery O2 Flow Rate FiO2 03/19/19 23:01 98.1 61 24 113/53 (73) 100 Room Air 98.1 Lab Values Laboratory Tests Test 03/19/19 23:00 03/19/19 23:30 03/20/19 01:15 Urine Collection Type Clean catch Urine Color Yellow Urine Clarity Clear Urine pH 6.0 Urine Specific [place] <=1.005 Urine Protein Negative mg/dL (NEG-TRACE) Urine Glucose (UA) Negative mg/dL (NEG) Urine Ketones (Stick) Negative mg/dL (NEG) Urine Blood Large (NEG) Urine Nitrite Negative (NEG) Urine Bilirubin Negative (NEG) Urine Urobilinogen Dipstick 0.2 mg/dL (0.2 mg/dL) Urine Leukocyte Esterase Negative (NEG) Urine RBC Rare /HPF (0-2) Urine WBC 0 /HPF (0-4) Urine Squamous Epithelial Cells Few /LPF Urine Bacteria Few /HPF (0-FEW) Urine Opiates Screen Neg (NEG) Urine Methadone Screen Neg (NEG) Urine Barbiturates Neg (NEG) Urine Phencyclidine Screen Neg (NEG) Urine Amphetamine/Methamphetamine Neg (NEG) Urine Benzodiazepines Screen Neg (NEG) Urine Cocaine Screen Neg (NEG) Urine Cannabinoids Screen Neg (NEG) Urine Ethyl Alcohol Pos (NEG) White Blood Count 5.9 x10^3/uL (4.0-11.0) Red Blood Count 4.21 x10^6/uL (3.50-5.40) Hemoglobin 12.0 g/dL (12.0-15.5) Hematocrit 36.1 % (36.0-47.0) Mean Corpuscular Volume 86 fL (79-100) Mean Corpuscular Hemoglobin 28 pg (25-35) Mean Corpuscular Hemoglobin Concent 33 g/dL (31-37) Red Cell Distribution Width 14.1 % (11.5-14.5) Platelet Count 354 x10^3/uL (140-400) Neutrophils (%) (Auto) 33 % (31-73) Lymphocytes (%) (Auto) 57 % (24-48) H Monocytes (%) (Auto) 7 % (0-9) Eosinophils (%) (Auto) 2 % (0-3) Basophils (%) (Auto) 1 % (0-3) Neutrophils # (Auto) 1.9 x10^3uL (1.8-7.7) Lymphocytes # (Auto) 3.4 x10^3/uL (1.0-4.8) Monocytes # (Auto) 0.4 x10^3/uL (0.0-1.1) Eosinophils # (Auto) 0.1 x10^3/uL (0.0-0.7) Basophils # (Auto) 0.1 x10^3/uL (0.0-0.2) Prothrombin Time 13.5 SEC (11.7-14.0) Prothrombin Time INR 1.1 (0.8-1.1) PTT 28 SEC (24-38) Sodium Level 136 mmol/L (136-145) Potassium Level 3.7 mmol/L (3.5-5.1) Chloride Level 98 mmol/L (98-107) Carbon Dioxide Level 24 mmol/L (21-32) Anion Gap 14 (6-14) Blood Urea Nitrogen 3 mg/dL (7-20) L Creatinine 0.7 mg/dL (0.6-1.0) Estimated GFR (Cockcroft-Gault) 117.3 BUN/Creatinine Ratio 4 (6-20) L Glucose Level 105 mg/dL (70-99) H Calcium Level 8.5 mg/dL (8.5-10.1) Total Bilirubin 0.8 mg/dL (0.2-1.0) Aspartate Amino Transferase (AST) 109 U/L (15-37) H Alanine Aminotransferase (ALT) 85 U/L (14-59) H Alkaline Phosphatase 107 U/L (46-116) Creatine Kinase 2201 U/L (26-192) H Creatine Kinase MB (Mass) 15.7 ng/mL (0.0-3.6) H Creatine Kinase MB Relative Index 0.7 % (0-4) Troponin I Quantitative < 0.017 ng/mL (0.000-0.055) Total Protein 8.4 g/dL (6.4-8.2) H Albumin 3.9 g/dL (3.4-5.0) Albumin/Globulin Ratio 0.9 (1.0-1.7) L Lipase 43 U/L (73-393) L Ethyl Alcohol Level 396 mg/dL (0-10) H POC Urine HCG, Qualitative Hcg negative (Negative) Laboratory Tests 03/19/19 23:30 Laboratory Tests 03/19/19 23:30 EKG EKG @2343 NSR at 73bpm, baseline artifact noted, flat t wave noted to V4-V5, QRS 88ms, QT/QTc 416/462ms Radiology/Procedures Radiology/Procedures 2 view CXR (preliminary interpretation by ED physician): NO acute process Course & Med Decision Making Course & Med Decision Making Pertinent Lab studies reviewed. (See chart for details) Patient with history of binge drinking x 1 week. Patient also with HPI and ph ysical exam consistent for anxiety. NIHSS 0. Neurologically intact. Labs obtained and posted to chart. ETOH elevated to almost 400. Banana bag given. CPK elevated likely due to dehydration. Additional IVF bolus given. PAT team consulted for possible detox as patient now agreeable. Discussion regarding patient would need to have ETOH < 300. Plan to recheck at 230am. Patient subsequently decided that she will follow-up as outpatient and requesting to go home. Patient with steady gait. Clinically sober. Patient stable for discharge with outpatient follow-up with PCP and detox facility. Discussed findings and plan with patient, who acknowledges understanding and agreement. Dragon Disclaimer Dragon Disclaimer This electronic medical record was generated, in whole or in part, using a voice recognition dictation system. Departure Departure Impression: Primary Impression: Alcohol abuse Additional Impressions: Elevated CPK Dehydration Disposition: 01 HOME, SELF-CARE Condition: STABLE Referrals: NURIS MATT (PCP) Patient Instructions: Chronic Alcoholism, Dehydration, Adult, [id number], How Much is Too Much Alcohol, [id number] Scripts Famotidine (PEPCID) 20 Mg Tablet 20 MG PO BID, #20 TAB Prov: SUSHANT SAAVEDRA DO 03/20/19 Ondansetron (ONDANSETRON ODT) 4 Mg Tab.rapdis 1 TAB PO PRN Q6-8HRS PRN for NAUSEA, #16 TAB Prov: SUSHANT SAAVEDRA DO 03/20/19 Problem Qualifiers SUSHANT SAAVEDRA DO March 19, 2019 23:49
[2019-03-19 23:54] LABS: BASO # 0.1 x10^3/uL (0.0-0.2); BASO % 1 % (0-3); EOS # 0.1 x10^3/uL (0.0-0.7); EOS % 2 % (0-3); HEMATOCRIT 36.1 % (36.0-47.0); LYMPH # 3.4 x10^3/uL (1.0-4.8); LYMPH % 57 % (24-48); MEAN CORPUSCULAR HEMOGLOBIN 28 pg (25-35); MEAN CORPUSCULAR HGB CONC 33 g/dL (31-37); MEAN CORPUSCULAR VOLUME 86 fL (79-100); MONO # 0.4 x10^3/uL (0.0-1.1); MONO % 7 % (0-9); NEUT # 1.9 x10^3uL (1.8-7.7); NEUT % 33 % (31-73); PLATELET COUNT 354 x10^3/uL (140-400); RED BLOOD COUNT 4.21 x10^6/uL (3.50-5.40); RED CELL DISTRIBUTION WIDTH 14.1 % (11.5-14.5); WHITE BLOOD COUNT 5.9 x10^3/uL (4.0-11.0)
[2019-03-20] MEDS ORDERED: MULTIVIT INFUSN,ADULT 4,VIT K 10 ML, THIAMINE INJ 100 MG, FOLIC ACID INJ 1 MG in IV NOR... IV ONE ×4
[2019-03-20 00:01] LABS: CALCIUM 8.5 mg/dL (8.5-10.1); CREATININE 0.7 mg/dL (0.6-1.0); GFR 117.3; POTASSIUM 3.7 mmol/L (3.5-5.1)
[2019-03-20 00:02] LABS: PROTHROMBIN TIME PATIENT 13.5 SEC (11.7-14.0)
[2019-03-20 00:08] LABS: ALBUMIN 3.9 g/dL (3.4-5.0); ALBUMIN/GLOBULIN RATIO 0.9 (1.0-1.7); TOTAL BILIRUBIN 0.8 mg/dL (0.2-1.0); TOTAL PROTEIN 8.4 g/dL (6.4-8.2)
[2019-03-20] MEDS ORDERED: IV NORMAL SALINE 1000ML BAG 1,000 ML IV ONE (01:00)
[2019-03-20] MEDS ORDERED: ONDA4TAB12 PO (01:54)
[2019-03-20] MEDS ORDERED: FAMO-63 PO (01:54)
[2019-03-20 02:09] VITALS: BP 118/55
--- NOTE | 2019-03-20 07:03 | EKG ---
[facility] [address] [place] [address] Test Date: 2019-03-19 Test Time: 23:43:50 Pat Name: JEFERSON OLIVEROS Department: Room: Gender: F [employer]: : 1985 Requested By: SUSHANT SAAVEDRA Order Number: [id number] Reading MD: Paulie Desir Measurements Intervals [place] Rate: 73 P: 90 RI: 142 QRS: 81 QRSD: 88 T: 24 QT: 416 QTc: 462 Interpretive Statements SINUS RHYTHM NON SPECIFIC T ABNORMALITY Electronically Signed On 04-16-2019 13:16:46 CDT by Paulie Desir
--- NOTE | 2019-03-20 08:10 | RAD ---
Chest, 2 views, 03/19/2019: HISTORY: Chest pain Comparison is made to a study from 12/25/2018. The heart size and pulmonary vascularity are normal. No pulmonary infiltrate is seen. There is no evidence of pleural fluid. IMPRESSION: No acute cardiopulmonary abnormality is detected. Electronically signed by: Qamar Blankenship MD (03/20/2019 8:07 AM) [facility]
--- NOTE | 2019-03-26 11:03 | NUR ---
Late entry made to Medical Record. IV Stop time transcribed from eMAR to IV spreadsheet
== END 2019-03-20 02:28 | disposition home or self-care (01) ==
LOC: ER 23:01
DX: F10.129 Alcohol abuse with intoxication, unspecified (principal); Y90.8 Blood alcohol level of 240 mg/100 ml or more; R74.8 Abnormal levels of other serum enzymes; E86.0 Dehydration; F17.210 Nicotine dependence, cigarettes, uncomplicated; E11.9 Type 2 diabetes mellitus without complications; J45.909 Unspecified asthma, uncomplicated; Z90.89 Acquired absence of other organs
CPT/HCPCS: 36415; 71046; 80053; 80307; 81001; 81025; 82553; 83690; 84484; 85025; 85610; 85730; 93005; 96361; 96365; 96375; 99285; G0480; J1885; J2405; J3490; J7030

== ENCOUNTER 2019-06-19 21:55 | Emergency (ER) | payer MEDICAID, OTHER ==
[~2019-06-19] VITALS: Ht 180.3 cm; Wt 63.5 kg
[~2019-06-19 21:55] MED LIST changes: +FAMO-63 PO; +ONDA4TAB12 PO
--- NOTE | 2019-06-19 22:08 | PHYS DOC ---
Past Medical History Past Medical History: Alcoholism, Asthma, Diabetes-Type II (NAVDEEP RÍOS APRN) Past Surgical History: Appendectomy, Other Additional Past Surgical Histo: tubal (NAVDEEP RÍOS APRN) Alcohol Use: Rarely Drug Use: None (NAVDEEP RÍOS APRN) Adult General Chief Complaint Chief Complaint: ALCOHOL INTOXICATION HPI HPI Patient is a 33 year old female presents stating that she does not feel right. The patient states that she had marijuana, vodka, and beer prior to arrival. The patient states that she is nauseous. The patient is slurring her speech, and her gait is off. Denies any pain or any other substances prior to arrival. (NAVDEEP RÍOS APRN) Review of Systems Review of Systems Constitutional: Denies fever or chills. Reports dizziness. Eyes: Denies change in visual acuity, redness, or eye pain [] HENT: Denies nasal congestion or sore throat [] Respiratory: Denies cough or shortness of breath [] Cardiovascular: No additional information not addressed in HPI [] GI: Reports nausea. : Denies dysuria or hematuria [] Musculoskeletal: Denies back pain or joint pain [] Integument: Denies rash or skin lesions [] Neurologic: Denies headache, focal weakness or sensory changes [] Endocrine: Denies polyuria or polydipsia [] Complete systems were reviewed and found to be within normal limits, except as documented in this note. (NAVDEEP RÍOS APRN) Current Medications Current Medications Current Medications Medications (Trade) Dose Ordered Sig/Fabiana Start Time Stop Time Status Last Admin Dose Admin Diphenhydramine HCl (Benadryl) 25 mg 1X ONCE 06/19/19 22:45 06/19/19 22:46 DC 06/19/19 22:44 25 MG Lorazepam (Ativan Inj) 2 mg 1X ONCE 06/19/19 22:45 06/19/19 22:46 DC 06/19/19 22:44 2 MG Ondansetron HCl (Zofran) 4 mg 1X ONCE 06/19/19 22:15 06/19/19 22:16 DC 06/19/19 22:37 4 MG Sodium Chloride 1,000 ml @ 1,000 mls/hr 1X ONCE 06/20/19 01:30 06/20/19 02:29 DC 06/20/19 01:34 1,000 MLS/HR (NAVDEEP SAAVEDRA DO) Allergies Allergies Allergies Coded Allergies Type Severity Reaction Last Updated Verified No Known Drug Allergies 06/13/14 No (NAVDEEP SAAVEDRA DO) Physical Exam Physical Exam Constitutional: Well developed, well nourished, no acute distress, non-toxic appearance. [] HENT: Normocephalic, atraumatic, bilateral external ears normal, oropharynx moist, no oral exudates, nose normal. [] Eyes: PERRLA, EOMI, conjunctiva normal, no discharge. [] Neck: Normal range of motion, no tenderness, supple, no stridor. [] Cardiovascular:Heart rate regular rhythm, no murmur [] Lungs & Thorax: Bilateral breath sounds clear to auscultation [] Abdomen: Bowel sounds normal, soft, no tenderness, no masses, no pulsatile masses. [] Skin: Warm, dry, no erythema, no rash. [] Back: No tenderness, no CVA tenderness. [] Extremities: No tenderness, no cyanosis, no clubbing, ROM intact, no edema. [] Neurologic: Alert and oriented X 3, normal motor function, normal sensory function, no focal deficits noted. [] Psychologic: Affect crying, judgement reduced, mood normal. [] (NAVDEEP RÍOS APRN) Physical Exam Constitutional: Well developed, well nourished, obtunded, sleeping HENT: Normocephalic, atraumatic Eyes: PERRL, EOMI, conjunctiva normal, no discharge, horizontal nystagmus Neck: Normal range of motion, no tenderness, supple Cardiovascular: Heart rate normal, regular rhythm Lungs & Thorax: Bilateral breath sounds clear to auscultation, no wheezing Abdomen: Soft, no tenderness Skin: Warm, dry, no erythema, no rash Extremities: No tenderness, ROM intact, no edema Neurologic: Obtunded and sleeping, arousable to voice but falls back asleep (NAVDEEP SAAVEDRA DO) Current Patient Data Vital Signs Vital Signs Date Time Temp Pulse Resp B/P (MAP) Pulse Ox O2 Delivery O2 Flow Rate FiO2 06/20/19 06:19 80 25 93/54 (67) 96 Room Air 06/19/19 22:00 98.9 98.9 (NAVDEEP SAAVEDRA DO) Lab Values Laboratory Tests Test 06/19/19 22:05 06/19/19 22:10 06/19/19 22:18 Urine Collection Type Unknown Urine Color Yellow Urine Clarity Clear Urine pH 6.0 Urine Specific Eugene <=1.005 Urine Protein Negative mg/dL (NEG-TRACE) Urine Glucose (UA) Negative mg/dL (NEG) Urine Ketones (Stick) Negative mg/dL (NEG) Urine Blood Trace (NEG) Urine Nitrite Negative (NEG) Urine Bilirubin Negative (NEG) Urine Urobilinogen Dipstick 0.2 mg/dL (0.2 mg/dL) Urine Leukocyte Esterase Negative (NEG) Urine RBC Occ /HPF (0-2) Urine WBC 0 /HPF (0-4) Urine Squamous Epithelial Cells Few /LPF Urine Bacteria Few /HPF (0-FEW) Urine Opiates Screen Neg (NEG) Urine Methadone Screen Neg (NEG) Urine Barbiturates Neg (NEG) Urine Phencyclidine Screen Neg (NEG) Urine Amphetamine/Methamphetamine Neg (NEG) Urine Benzodiazepines Screen Neg (NEG) Urine Cocaine Screen Neg (NEG) Urine Cannabinoids Screen Neg (NEG) Urine Ethyl Alcohol Pos (NEG) POC Urine HCG, Qualitative Hcg negative (Negative) White Blood Count 6.1 x10^3/uL (4.0-11.0) Red Blood Count 4.54 x10^6/uL (3.50-5.40) Hemoglobin 13.3 g/dL (12.0-15.5) Hematocrit 39.5 % (36.0-47.0) Mean Corpuscular Volume 87 fL (79-100) Mean Corpuscular Hemoglobin 29 pg (25-35) Mean Corpuscular Hemoglobin Concent 34 g/dL (31-37) Red Cell Distribution Width 13.6 % (11.5-14.5) Platelet Count 348 x10^3/uL (140-400) Neutrophils (%) (Auto) 40 % (31-73) Lymphocytes (%) (Auto) 54 % (24-48) H Monocytes (%) (Auto) 5 % (0-9) Eosinophils (%) (Auto) 1 % (0-3) Basophils (%) (Auto) 0 % (0-3) Neutrophils # (Auto) 2.4 x10^3/uL (1.8-7.7) Lymphocytes # (Auto) 3.3 x10^3/uL (1.0-4.8) Monocytes # (Auto) 0.3 x10^3/uL (0.0-1.1) Eosinophils # (Auto) 0.0 x10^3/uL (0.0-0.7) Basophils # (Auto) 0.0 x10^3/uL (0.0-0.2) Segmented Neutrophils % 47 % (35-66) Lymphocytes % 50 % (24-48) H Monocytes % 3 % (0-10) Platelet Estimate Adequate (ADEQUATE) Sodium Level 147 mmol/L (136-145) H Potassium Level 3.7 mmol/L (3.5-5.1) Chloride Level 107 mmol/L (98-107) Carbon Dioxide Level 24 mmol/L (21-32) Anion Gap 16 (6-14) H Blood Urea Nitrogen 5 mg/dL (7-20) L Creatinine 0.7 mg/dL (0.6-1.0) Estimated GFR (Cockcroft-Gault) 117.3 BUN/Creatinine Ratio 7 (6-20) Glucose Level 95 mg/dL (70-99) Calcium Level 8.5 mg/dL (8.5-10.1) Magnesium Level 2.0 mg/dL (1.8-2.4) Total Bilirubin 0.5 mg/dL (0.2-1.0) Aspartate Amino Transferase (AST) 30 U/L (15-37) Alanine Aminotransferase (ALT) 25 U/L (14-59) Alkaline Phosphatase 91 U/L (46-116) Total Protein 8.6 g/dL (6.4-8.2) H Albumin 4.0 g/dL (3.4-5.0) Albumin/Globulin Ratio 0.9 (1.0-1.7) L Ethyl Alcohol Level 434 mg/dL (0-10) *H Laboratory Tests 06/19/19 22:18 Laboratory Tests 06/19/19 22:18 (NAVDEEP SAAVEDRA DO) Lab Values Laboratory Tests Test 06/19/19 22:05 06/19/19 22:10 06/19/19 22:18 Urine Collection Type Unknown Urine Color Yellow Urine Clarity Clear Urine pH 6.0 Urine Specific Eugene <=1.005 Urine Protein Negative mg/dL (NEG-TRACE) Urine Glucose (UA) Negative mg/dL (NEG) Urine Ketones (Stick) Negative mg/dL (NEG) Urine Blood Trace (NEG) Urine Nitrite Negative (NEG) Urine Bilirubin Negative (NEG) Urine Urobilinogen Dipstick 0.2 mg/dL (0.2 mg/dL) Urine Leukocyte Esterase Negative (NEG) Urine RBC Occ /HPF (0-2) Urine WBC 0 /HPF (0-4) Urine Squamous Epithelial Cells Few /LPF Urine Bacteria Few /HPF (0-FEW) Urine Opiates Screen Neg (NEG) Urine Methadone Screen Neg (NEG) Urine Barbiturates Neg (NEG) Urine Phencyclidine Screen Neg (NEG) Urine Amphetamine/Methamphetamine Neg (NEG) Urine Benzodiazepines Screen Neg (NEG) Urine Cocaine Screen Neg (NEG) Urine Cannabinoids Screen Neg (NEG) Urine Ethyl Alcohol Pos (NEG) POC Urine HCG, Qualitative Hcg negative (Negative) White Blood Count 6.1 x10^3/uL (4.0-11.0) Red Blood Count 4.54 x10^6/uL (3.50-5.40) Hemoglobin 13.3 g/dL (12.0-15.5) Hematocrit 39.5 % (36.0-47.0) Mean Corpuscular Volume 87 fL (79-100) Mean Corpuscular Hemoglobin 29 pg (25-35) Mean Corpuscular Hemoglobin Concent 34 g/dL (31-37) Red Cell Distribution Width 13.6 % (11.5-14.5) Platelet Count 348 x10^3/uL (140-400) Neutrophils (%) (Auto) 40 % (31-73) Lymphocytes (%) (Auto) 54 % (24-48) H Monocytes (%) (Auto) 5 % (0-9) Eosinophils (%) (Auto) 1 % (0-3) Basophils (%) (Auto) 0 % (0-3) Neutrophils # (Auto) 2.4 x10^3/uL (1.8-7.7) Lymphocytes # (Auto) 3.3 x10^3/uL (1.0-4.8) Monocytes # (Auto) 0.3 x10^3/uL (0.0-1.1) Eosinophils # (Auto) 0.0 x10^3/uL (0.0-0.7) Basophils # (Auto) 0.0 x10^3/uL (0.0-0.2) Segmented Neutrophils % 47 % (35-66) Lymphocytes % 50 % (24-48) H Monocytes % 3 % (0-10) Platelet Estimate Adequate (ADEQUATE) Sodium Level 147 mmol/L (136-145) H Potassium Level 3.7 mmol/L (3.5-5.1) Chloride Level 107 mmol/L (98-107) Carbon Dioxide Level 24 mmol/L (21-32) Anion Gap 16 (6-14) H Blood Urea Nitrogen 5 mg/dL (7-20) L Creatinine 0.7 mg/dL (0.6-1.0) Estimated GFR (Cockcroft-Gault) 117.3 BUN/Creatinine Ratio 7 (6-20) Glucose Level 95 mg/dL (70-99) Calcium Level 8.5 mg/dL (8.5-10.1) Magnesium Level 2.0 mg/dL (1.8-2.4) Total Bilirubin 0.5 mg/dL (0.2-1.0) Aspartate Amino Transferase (AST) 30 U/L (15-37) Alanine Aminotransferase (ALT) 25 U/L (14-59) Alkaline Phosphatase 91 U/L (46-116) Total Protein 8.6 g/dL (6.4-8.2) H Albumin 4.0 g/dL (3.4-5.0) Albumin/Globulin Ratio 0.9 (1.0-1.7) L Ethyl Alcohol Level 434 mg/dL (0-10) *H Laboratory Tests 06/19/19 22:18 Laboratory Tests 06/19/19 22:18 (NAVDEEP RÍOS APRN) EKG EKG [] (NAVDEEP RÍOS APRN) Radiology/Procedures Radiology/Procedures [] (NAVDEEP RÍOS APRN) Course & Med Decision Making Course & Med Decision Making Pertinent Labs and Imaging studies reviewed. (See chart for details) Will get labs, give fluids, and nausea medication. Patient is crying and screaming at staff. Will give Benadryl and Ativan to help calm her down. Patient pulled out her IV at 22:45. Unable to find ride home. Alcohol is 435. The patient is maintaining her respiratory drive. Will have sober up and then discharge once she is able to find ride. 0130. Patient is sleeping. Nursing reports BP dropped to 77/43, instructed them to replace IV and give 1 L of fluids. 0133: Signed patient out to Dr. Saavedra. All questions answered. (NAVDEEP RÍOS APRN) Course & Med Decision Making 0135- Sign out received from Navdeep [email or web address] for patient who is acutely intoxicated. Appears to be history of chronic ETOH abuse as lab value > 430. Patient seen and evaluated by myself. Patient currently sleeping. Will allow to sleep until shift end and see if patient is ambulatory and able to wake up more fully. Labs reviewed. 0600- Patient monitored in department. Patient now more awake and arousable. Steady gait noted. Patient stable for discharge with outpatient follow-up with PCP/rehabilitation. Drug and alcohol resources provided. Discussed findings and plan with patient and family, who acknowledge understanding and agreement. (NAVDEEP SAAVEDRA DO) Dragon Disclaimer Dragon Disclaimer This electronic medical record was generated, in whole or in part, using a voice recognition dictation system. (NAVDEEP RÍOS APRN) Departure Departure Impression: Primary Impression: Alcohol intoxication Disposition: 01 HOME, SELF-CARE Condition: STABLE Referrals: NURIS MATT (PCP) Patient Instructions: Alcohol Intoxication, Alcohol and Drug Addiction, Finding Treatment Additional Instructions: Thank you for visiting [facility]. We appreciate you trusting us with your care. If any additional problems come up don't hesitate to return to visit us. Please follow up with your primary care provider so they can plan additional care if needed and know about the problem that you had. If symptoms worsen come back to the Emergency Department. Any concerning symptoms that start such as chest pain, shortness of air, weakness or numbness on one side of the body, running high fevers or any other concerning symptoms return to the ER. Please stop using drugs and or drinking. Please let us know if you need assistance getting help. Attending Signature Attending Signature I have personally interviewed and examined the patient. All charts, labs, and imaging studies were reviewed. I agree with the PA/BUSINESS SPECIALIST's findings, exam, and plan. (NAVDEEP SAAVEDRA DO) NAVDEEP RÍOS APRN Jun 19, 2019 22:08 NAVDEEP SAAVEDRA DO Jun 20, 2019 06:15
[2019-06-19] MEDS ORDERED: IV NORMAL SALINE 1000ML BAG 1,000 ML IV ONE (22:15)
[2019-06-19] MEDS ORDERED: ONDANSETRON PF 4 MG/2 ML VIAL. IV ONE (22:15)
[2019-06-19 22:18] LABS: BILIRUBIN,URINE NEGATIVE (NEG); CLARITY,URINE CLEAR; COLOR,URINE YELLOW; NITRITE,URINE NEGATIVE (NEG); PROTEIN,URINE NEGATIVE (NEG-TRACE); UROBILINOGEN,URINE 0.2 mg/dL (0.2 mg/dL)
[2019-06-19 22:23] LABS: BARBITURATES NEG (NEG); BENZODIAZEPINES NEG (NEG); CANNABINOIDS NEG (NEG); COCAINE NEG (NEG); METHADONE NEG (NEG); OPIATES NEG (NEG); PHENCYCLIDINE NEG (NEG)
[2019-06-19 22:26] LABS: SQUAMOUS EPITHELIAL CELL,UR FEW /LPF
[2019-06-19 22:27] LABS: BACTERIA,URINE FEW /HPF (0-FEW); RBC,URINE OCC /HPF (0-2); WBC,URINE 0 /HPF (0-4)
[2019-06-19 22:30] LABS: BASO % 0 % (0-3); EOS % 1 % (0-3); HEMATOCRIT 39.5 % (36.0-47.0); HEMOGLOBIN 13.3 g/dL (12.0-15.5); LYMPH # 3.3 x10^3/uL (1.0-4.8); LYMPH % 54 % (24-48); MEAN CORPUSCULAR HEMOGLOBIN 29 pg (25-35); MEAN CORPUSCULAR HGB CONC 34 g/dL (31-37); MEAN CORPUSCULAR VOLUME 87 fL (79-100); MONO # 0.3 x10^3/uL (0.0-1.1); MONO % 5 % (0-9); NEUT # 2.4 x10^3/uL (1.8-7.7); NEUT % 40 % (31-73); PLATELET COUNT 348 x10^3/uL (140-400); RED BLOOD COUNT 4.54 x10^6/uL (3.50-5.40); RED CELL DISTRIBUTION WIDTH 13.6 % (11.5-14.5); WHITE BLOOD COUNT 6.1 x10^3/uL (4.0-11.0)
[2019-06-19 22:31] LABS: AMPHETAMINE/METHAMPHETAMINE NEG (NEG)
[2019-06-19 22:37] LABS: CALCIUM 8.5 mg/dL (8.5-10.1); CREATININE 0.7 mg/dL (0.6-1.0); GFR 117.3; POTASSIUM 3.7 mmol/L (3.5-5.1)
[2019-06-19 22:44] LABS: ALBUMIN/GLOBULIN RATIO 0.9 (1.0-1.7); TOTAL BILIRUBIN 0.5 mg/dL (0.2-1.0); TOTAL PROTEIN 8.6 g/dL (6.4-8.2)
[2019-06-19] MEDS ORDERED: diphenhydrAMINE 50 MG/ML VIAL IVP ONE (22:45)
[2019-06-19 22:56] LABS: % LYMPHS 50 % (24-48); % MONOS 3 % (0-10); % SEGS 47 % (35-66); PLT ESTIMATE ADEQUATE (ADEQUATE)
[2019-06-20] MEDS ORDERED: IV NORMAL SALINE 1000ML BAG 1,000 ML IV ONE (01:30)
[2019-06-20 06:19] VITALS: BP 93/54
== END 2019-06-20 08:15 | disposition home or self-care (01) ==
LOC: ER 21:55
DX: F10.129 Alcohol abuse with intoxication, unspecified (principal); R11.0 Nausea; R47.81 Slurred speech; R42 Dizziness and giddiness; Y90.8 Blood alcohol level of 240 mg/100 ml or more; J45.909 Unspecified asthma, uncomplicated; E11.9 Type 2 diabetes mellitus without complications; Z90.89 Acquired absence of other organs
CPT/HCPCS: 36415; 80053; 80307; 81001; 81025; 83735; 85007; 85025; 96361; 96374; 96375; 99284; G0480; J1200; J2060; J2405; J7030

== ENCOUNTER 2020-03-09 18:19 | Emergency (ER) | payer MEDICAID ==
[~2020-03-09] VITALS: Ht 170.2 cm; Wt 64.0 kg
[2020-03-09 18:49] LABS: BASO # 0.1 x10^3/uL (0.0-0.2); BASO % 2 % (0-3); EOS % 1 % (0-3); HEMATOCRIT 40.4 % (36.0-47.0); HEMOGLOBIN 13.5 g/dL (12.0-15.5); LYMPH # 2.3 x10^3/uL (1.0-4.8); LYMPH % 40 % (24-48); MEAN CORPUSCULAR HEMOGLOBIN 29 pg (25-35); MEAN CORPUSCULAR HGB CONC 33 g/dL (31-37); MEAN CORPUSCULAR VOLUME 88 fL (79-100); MONO # 0.5 x10^3/uL (0.0-1.1); MONO % 9 % (0-9); NEUT # 2.9 x10^3/uL (1.8-7.7); NEUT % 49 % (31-73); PLATELET COUNT 315 x10^3/uL (140-400); RED CELL DISTRIBUTION WIDTH 14.7 % (11.5-14.5); WHITE BLOOD COUNT 5.9 x10^3/uL (4.0-11.0)
--- NOTE | 2020-03-09 18:51 | PHYS DOC ---
General Adult EDM: Chief Complaint: ALTERED MENTAL STATUS HPI: HPI: 35 year old female brought in by ems for evaluation of right shoulder pain. EMS transported the patient with the complaint of right sided upper and lower extremity pain and numbness x 30 minutes. EMS reports patient has been on a drinking binge x 2 days. On arrival patient is intoxicated. Nursing actived patient as a code stroke. On exam patient confused with ETOH on breath. Review of Systems: Review of Systems: unable to obtain due to intoxication Heart Score: Risk Factors: Risk Factors: DM, Current or recent (<one month) smoker, HTN, HLP, family history of CAD, obesity. Risk Scores: Score 0 - 3: 2.5% MACE over next 6 weeks - Discharge Home Score 4 - 6: 20.3% MACE over next 6 weeks - Admit for Clinical Observation Score 7 - 10: 72.7% MACE over next 6 weeks - Early Invasive Strategies Allergies: Allergies: Allergies Coded Allergies Type Severity Reaction Last Updated Verified No Known Drug Allergies 03/09/20 No Physical Exam: PE: Constitutional: Well developed, well nourished, no acute distress, non-toxic appearance. [] HENT: Normocephalic, atraumatic, bilateral external ears normal, oropharynx moist, no oral exudates, nose normal. [] Eyes: PERRLA, EOMI, conjunctiva normal, no discharge. [] Neck: Normal range of motion, no tenderness, supple, no stridor. [] Cardiovascular:Heart rate regular rhythm, no murmur [] Lungs & Thorax: Bilateral breath sounds clear to auscultation [] Abdomen: Bowel sounds normal, soft, no tenderness, no masses, no pulsatile masses. [] Skin: Warm, dry, no erythema, no rash. [] Back: No tenderness, no CVA tenderness. [] Extremities: No tenderness, no cyanosis, no clubbing, ROM intact, no edema. [] Neurologic: Alert and confused, [] Psychologic: Affect normal, judgement normal, mood normal. [] EKG: EKG: Time 1839 heart rate [address] elevation no ST depression no acute VT[] Radiology/Procedures: Radiology/Procedures: [] Course & Med Decision Making: Course & Med Decision Making Pertinent Labs and Imaging studies reviewed. (See chart for details) []Patient returned from CT. She is alert and oriented no weakness. 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 Patient admits heavy drinking tonight. Patient CT head negative for acute abnormalities --- imaging was discussed with radiologist. Treated with IV fluids. She was observed. 2130hrs- patient is clinically sober. She ambulated with a steady gait. Patient will be discharged home in the care of family. Rochelleon Disclaimer: Romelia Disclaimer: This electronic medical record was generated, in whole or in part, using a voice recognition dictation system. Departure Departure Impression: Primary Impression: Alcohol intoxication Qualified Codes: F10.929 - Alcohol use, unspecified with intoxication, unspecified Disposition: HOME, SELF-CARE Condition: IMPROVED STEPHANIE FITZGERALD I DO Mar 09, 2020 18:51
[2020-03-09 18:59] LABS: BILIRUBIN,URINE NEGATIVE (NEG); CLARITY,URINE CLEAR; COLOR,URINE YELLOW; NITRITE,URINE NEGATIVE (NEG); PROTEIN,URINE NEGATIVE (NEG-TRACE); UROBILINOGEN,URINE 0.2 mg/dL (0.2 mg/dL)
[2020-03-09 19:02] LABS: CALCIUM 8.8 mg/dL (8.5-10.1); CREATININE 0.6 mg/dL (0.6-1.0); GFR 138.5; POTASSIUM 3.8 mmol/L (3.5-5.1)
--- NOTE | 2020-03-09 19:03 | RAD ---
EXAM: CT Head without IV contrast CLINICAL HISTORY: Altered mental status, weakness COMPARISON: None. TECHNIQUE: Routine CT of the head without contrast. Soft tissues and bone windows were reviewed. PQRS compliance statement - One or more of the following individualized dose reduction techniques were utilized for this study: 1. Automated exposure control 2. Adjustment of the mA and/or kV according to patient size 3. Use of iterative reconstruction technique FINDINGS: There is no evidence of hemorrhage, mass or extra-axial fluid collection. Farooq-white differentiation is maintained with no evidence of edema. There is no mass effect or shift of the intracranial structures. The ventricles, basilar cisterns and cortical sulci are normal in size and configuration for the patients stated age. The cerebellum and brainstem are unremarkable. The calvarium demonstrates no evidence of fracture or focal lesion. There is normal aeration of the visualized paranasal sinuses and mastoid air cells. The visualized portions of the orbits are normal. IMPRESSION: No evidence for acute intracranial hemorrhage. Findings discussed with STEPHANIE FITZGERALD at 03/09/2020 6:59 PM. FOR INTERNAL CODING PURPOSES RESULT CODE: (C) Electronically signed by: Titus Mercado MD (03/09/2020 7:00 PM) JANNA
[2020-03-09 19:04] LABS: BACTERIA,URINE 0 /HPF (0-FEW); RBC,URINE OCC /HPF (0-2); SQUAMOUS EPITHELIAL CELL,UR OCC /LPF; WBC,URINE 0 /HPF (0-4)
[2020-03-09 19:07] LABS: AMPHETAMINE/METHAMPHETAMINE NEG (NEG); BARBITURATES NEG (NEG); BENZODIAZEPINES NEG (NEG); CANNABINOIDS NEG (NEG); COCAINE NEG (NEG); METHADONE NEG (NEG); OPIATES NEG (NEG); PHENCYCLIDINE NEG (NEG)
[2020-03-09 19:07] LABS: ALBUMIN/GLOBULIN RATIO 0.9 (1.0-1.7); TOTAL BILIRUBIN 0.4 mg/dL (0.2-1.0); TOTAL PROTEIN 8.3 g/dL (6.4-8.2)
[2020-03-09] MEDS ORDERED: IV NORMAL SALINE 1000ML BAG 1,000 ML IV ONE (19:30)
--- NOTE | 2020-03-09 19:41 | RAD ---
Exam: Chest one view INDICATION: Altered mental status, weakness TECHNIQUE: Frontal view of the chest Comparisons: None FINDINGS: The cardiomediastinal silhouette and pulmonary vessels are within normal limits. The lung and pleural spaces are clear. IMPRESSION: No acute cardiopulmonary process. Electronically signed by: Abhinav Roman MD (03/09/2020 7:38 PM) [id number]
[2020-03-09 23:15] VITALS: BP 121/55
== END 2020-03-09 23:35 | disposition home or self-care (01) ==
LOC: EDBD 18:19 → MERGE 18:19 → ER 18:19
DX: F10.229 Alcohol dependence with intoxication, unspecified (principal); M25.511 Pain in right shoulder; R41.0 Disorientation, unspecified
CPT/HCPCS: 36415; 70450; 71045; 80053; 80307; 81001; 81025; 84484; 85025; 96360; 99285; G0480; J7030

== ENCOUNTER 2020-04-03 01:00 | Emergency (ER) | payer MEDICAID ==
[~2020-04-03] VITALS: Ht 167.6 cm; Wt 65.0 kg
--- NOTE | 2020-04-03 01:18 | PHYS DOC ---
Past Medical History Past Medical History: No Pertinent History, Asthma, Diabetes-Type II, Hyp ertension Additional Past Medical Histor: tubal Past Surgical History: Appendectomy, , Tubal ligation Additional Past Surgical Histo: tubal , Smoking Status: Never Smoker Alcohol Use: Heavy Drug Use: Marijuana General Adult EDM: Chief Complaint: ALCOHOL INTOXICATION HPI: HPI: Patient is a 34 year old female who presents via EMS with report of body aches all over as well as sinus pain and congestion. She also complains of sinus drainage. Patient states that she had 3 beers today and since drinking, she has not been feeling very well. EMS states that they believe the patient has drank quite a bit more. Patient denies any actual chest pain but does complain of some shortness of breath and states that she thinks she needs a breathing treatment. She denies any significant cough. She denies any lower extremity pain or swelling. [] Review of Systems: Review of Systems: Constitutional: Denies fever or chills. [] Respiratory: Complains of shortness of breath. [] Cardiovascular: Denies chest pain or edema. [] Musculoskeletal: Complains of diffuse body aches/pain. [] Integument: Denies rash. [] Neurologic: Denies headache, focal weakness or sensory changes. [] A full 10 point review of systems has been reviewed and is otherwise negative. Heart Score: Risk Factors: Risk Factors: DM, Current or recent (<one month) smoker, HTN, HLP, family history of CAD, obesity. Risk Scores: Score 0 - 3: 2.5% MACE over next 6 weeks - Discharge Home Score 4 - 6: 20.3% MACE over next 6 weeks - Admit for Clinical Observation Score 7 - 10: 72.7% MACE over next 6 weeks - Early Invasive Strategies Current Medications: Current Medications Medications (Trade) Dose Ordered Sig/Fabiana Start Time Stop Time Status Last Admin Dose Admin Albuterol/ Ipratropium (Duoneb) 3 ml 1X ONCE 04/03/20 01:15 04/03/20 01:16 UNV Ketorolac Tromethamine (Toradol 30mg Vial) 30 mg 1X ONCE 04/03/20 01:15 04/03/20 01:16 UNV Multivitamins 10 ml/Thiamine HCl 100 mg/Folic Acid 1 mg/Sodium Chloride 1,011.2 ml @ 1,000.088 mls/hr 1X ONCE 04/03/20 01:15 04/03/20 02:15 UNV Ondansetron HCl (Zofran) 4 mg 1X ONCE 04/03/20 01:15 04/03/20 01:16 UNV Allergies: Allergies: Allergies Coded Allergies Type Severity Reaction Last Updated Verified No Known Drug Allergies 06/13/14 No Physical Exam: PE: Constitutional: Well developed, well nourished, no acute distress, non-toxic appearance. [] HENT: Normocephalic, atraumatic, bilateral external ears normal, oropharynx moist, no oral exudates, nose normal. [] Eyes: PERRLA, EOMI, conjunctiva normal, no discharge. [] Neck: Normal range of motion, no tenderness, supple, no stridor. [] Cardiovascular: Mildly tachycardic rate with regular rhythm [] Lungs & Thorax: Few inspiratory and expiratory wheezes are noted bilaterally to auscultation [] Abdomen: Bowel sounds normal, soft, no tenderness. [] Skin: Warm, dry, no erythema, no rash. [] Extremities: No tenderness, no cyanosis, no clubbing, ROM intact. [] Neurologic: Alert and oriented X 3, no focal deficits noted. [] EKG: EKG: [] Radiology/Procedures: Radiology/Procedures: [] Course & Med Decision Making: Course & Med Decision Making Pertinent Labs and Imaging studies reviewed. (See chart for details) [] Dragon Disclaimer: Dragon Disclaimer: This electronic medical record was generated, in whole or in part, using a voice recognition dictation system. Departure Departure Impression: Primary Impression: Alcohol intoxication Qualified Codes: F10.920 - Alcohol use, unspecified with intoxication, uncomplicated Disposition: 01 HOME, SELF-CARE Condition: STABLE Referrals: NURIS MATT (PCP) Patient Instructions: Alcohol Intoxication, Alcohol Problems Scripts Ondansetron (ONDANSETRON ODT) 4 Mg Tab.rapdis 1 TAB PO PRN Q6-8HRS PRN for NAUSEA, #15 TAB Prov: JASMEET VALLEJO Jr. DO 04/03/20 JASMEET VALLEJO Jr. DO April 03, 2020 01:18
[2020-04-03] MEDS ORDERED: IPRATRPIUM/ALBUTEROL 0.5/2.5MG 3 ML NEBU. NEB ONE (01:30)
[2020-04-03] MEDS ORDERED: ONDANSETRON PF 4 MG/2 ML VIAL. IVP ONE (01:30)
[2020-04-03] MEDS ORDERED: KETOROLAC 30 MG/ML VIAL. IVP ONE (01:30)
[2020-04-03 01:39] LABS: BASO # 0.1 x10^3/uL (0.0-0.2); BASO % 1 % (0-3); EOS # 0.1 x10^3/uL (0.0-0.7); EOS % 2 % (0-3); HEMATOCRIT 38.7 % (36.0-47.0); HEMOGLOBIN 13.1 g/dL (12.0-15.5); LYMPH % 34 % (24-48); MEAN CORPUSCULAR HEMOGLOBIN 30 pg (25-35); MEAN CORPUSCULAR HGB CONC 34 g/dL (31-37); MEAN CORPUSCULAR VOLUME 88 fL (79-100); MONO # 0.5 x10^3/uL (0.0-1.1); MONO % 9 % (0-9); NEUT # 3.1 x10^3/uL (1.8-7.7); NEUT % 54 % (31-73); PLATELET COUNT 304 x10^3/uL (140-400); RED BLOOD COUNT 4.39 x10^6/uL (3.50-5.40); RED CELL DISTRIBUTION WIDTH 14.3 % (11.5-14.5); WHITE BLOOD COUNT 5.8 x10^3/uL (4.0-11.0)
[2020-04-03 01:41] LABS: BILIRUBIN,URINE NEGATIVE (NEG); CLARITY,URINE CLEAR; COLOR,URINE YELLOW; NITRITE,URINE NEGATIVE (NEG); PROTEIN,URINE NEGATIVE (NEG-TRACE); UROBILINOGEN,URINE 0.2 mg/dL (0.2 mg/dL)
[2020-04-03 01:47] LABS: BARBITURATES NEG (NEG); BENZODIAZEPINES NEG (NEG); CANNABINOIDS NEG (NEG); COCAINE NEG (NEG); METHADONE NEG (NEG); OPIATES NEG (NEG); PHENCYCLIDINE NEG (NEG)
[2020-04-03] MEDS ORDERED: POTASSIUM CHLORIDE 20 MEQ TABLET.ER. PO ONE (02:00)
[2020-04-03] MEDS ORDERED: MULTIVIT INFUSN,ADULT 4,VIT K 10 ML, THIAMINE INJ 100 MG, FOLIC ACID INJ 1 MG in IV NOR... IV ONE (02:00)
[2020-04-03 02:09] LABS: AMPHETAMINE/METHAMPHETAMINE NEG (NEG)
[2020-04-03 02:15] LABS: CALCIUM 8.6 mg/dL (8.5-10.1); CREATININE 0.7 mg/dL (0.6-1.0); GFR 116.6; POTASSIUM 3.8 mmol/L (3.5-5.1)
[2020-04-03 02:21] LABS: DIRECT BILIRUBIN 0.1 mg/dL (0.0-0.2); MAGNESIUM 2.1 mg/dL (1.8-2.4); TOTAL BILIRUBIN 0.3 mg/dL (0.2-1.0); TOTAL PROTEIN 8.6 g/dL (6.4-8.2)
[2020-04-03 02:25] LABS: RBC,URINE 0 /HPF (0-2); WBC,URINE OCC /HPF (0-4)
[2020-04-03 02:26] LABS: BACTERIA,URINE FEW /HPF (0-FEW); SQUAMOUS EPITHELIAL CELL,UR FEW /LPF
[2020-04-03] MEDS ORDERED: ONDA4TAB12 PO (05:41)
[2020-04-03 07:52] VITALS: BP 112/62
== END 2020-04-03 08:30 | disposition home or self-care (01) ==
LOC: ER 01:00
DX: F10.229 Alcohol dependence with intoxication, unspecified (principal); Y90.8 Blood alcohol level of 240 mg/100 ml or more; J45.909 Unspecified asthma, uncomplicated; E11.9 Type 2 diabetes mellitus without complications; I10 Essential (primary) hypertension; Z90.89 Acquired absence of other organs; Z98.51 Tubal ligation status
CPT/HCPCS: 36415; 80048; 80076; 80307; 81001; 83735; 85025; 94640; 96365; 96375; 99284; G0480; J1885; J2405; J3411; J3490; J7030

== ENCOUNTER 2020-05-13 21:25 | Emergency (ER) | payer MEDICAID ==
[~2020-05-13] VITALS: Ht 167.6 cm; Wt 81.8 kg
[2020-05-13 21:52] LABS: BILIRUBIN,URINE NEGATIVE (NEG); CLARITY,URINE CLEAR; COLOR,URINE YELLOW; NITRITE,URINE NEGATIVE (NEG); PROTEIN,URINE NEGATIVE (NEG-TRACE); UROBILINOGEN,URINE 0.2 mg/dL (0.2 mg/dL)
[2020-05-13 21:57] LABS: U PREG PATIENT NEGATIVE (NEG)
[2020-05-13 21:59] LABS: BARBITURATES NEG (NEG); BENZODIAZEPINES NEG (NEG); CANNABINOIDS NEG (NEG); COCAINE NEG (NEG); METHADONE NEG (NEG); OPIATES NEG (NEG); PHENCYCLIDINE NEG (NEG)
[2020-05-13 22:00] LABS: AMPHETAMINE/METHAMPHETAMINE NEG (NEG)
[2020-05-13] MEDS ORDERED: IV NORMAL SALINE 1000ML BAG 1,000 ML IV ONE (22:00)
[2020-05-13 22:09] LABS: BACTERIA,URINE 0 /HPF (0-FEW); RBC,URINE 0 /HPF (0-2); SQUAMOUS EPITHELIAL CELL,UR FEW /LPF; WBC,URINE 0 /HPF (0-4)
[2020-05-13 22:10] LABS: BASO # 0.1 x10^3/uL (0.0-0.2); BASO % 1 % (0-3); EOS # 0.1 x10^3/uL (0.0-0.7); EOS % 2 % (0-3); HEMATOCRIT 38.1 % (36.0-47.0); HEMOGLOBIN 13.1 g/dL (12.0-15.5); LYMPH # 2.4 x10^3/uL (1.0-4.8); LYMPH % 34 % (24-48); MEAN CORPUSCULAR HEMOGLOBIN 30 pg (25-35); MEAN CORPUSCULAR HGB CONC 34 g/dL (31-37); MEAN CORPUSCULAR VOLUME 88 fL (79-100); MONO # 0.5 x10^3/uL (0.0-1.1); MONO % 7 % (0-9); NEUT % 56 % (31-73); PLATELET COUNT 370 x10^3/uL (140-400); RED BLOOD COUNT 4.33 x10^6/uL (3.50-5.40); RED CELL DISTRIBUTION WIDTH 13.3 % (11.5-14.5)
--- NOTE | 2020-05-13 22:32 | RAD ---
Exam: Bilateral knees 3 views INDICATION: Injury TECHNIQUE: Frontal, lateral and oblique views of the right and left knee. Comparisons: None FINDINGS: Right knee: Bone mineralization is normal. No acute or healed fractures. Soft tissues are unremarkable. Joint spaces are well-maintained. Left knee: Bipartite patella noted. Bone mineralization is normal. No acute or healed fractures. Soft tissues are unremarkable. Joint spaces are well-maintained. IMPRESSION: 1. No acute osseous abnormality of the right knee. 2. No acute osseous abnormality of the left knee. Incidental note of bipartite patella. Electronically signed by: Abhinav Roman MD (05/13/2020 10:29 PM) [id number]
[2020-05-13 22:37] LABS: CALCIUM 8.7 mg/dL (8.5-10.1); CREATININE 0.7 mg/dL (0.6-1.0); GFR 116.6; POTASSIUM 3.8 mmol/L (3.5-5.1)
[2020-05-13 22:48] LABS: ALBUMIN 3.8 g/dL (3.4-5.0); ALBUMIN/GLOBULIN RATIO 0.9 (1.0-1.7); TOTAL BILIRUBIN 0.3 mg/dL (0.2-1.0)
[2020-05-13] MEDS ORDERED: ACETAMINOPHEN 325 MG TABLET. PO ONE (23:30)
--- NOTE | 2020-05-14 03:54 | PHYS DOC ---
Past Medical History Past Medical History: Asthma Additional Past Medical Histor: tubal Past Surgical History: No Surgical History Additional Past Surgical Histo: tubal , Smoking Status: Never Smoker Alcohol Use: Heavy Drug Use: Marijuana General Adult EDM: Chief Complaint: ALCOHOL INTOXICATION HPI: HPI: Patient is a 34 year old female brought by EMS with a chief complaint of altered mental status. Patient also complains of chest pain today. Patient does admit to drinking alcohol. Patient denies any drug use. Patient denies . Patient denies head injury or loss of consciousness. Patient denies obvious injury. Review of Systems: Review of Systems: Constitutional: Denies fever or chills. [] Eyes: Denies change in visual acuity. [] HENT: Denies nasal congestion or sore throat. [] Respiratory: Denies cough or shortness of breath. [] Cardiovascular: Complains of chest pain [] GI: Denies abdominal pain, nausea, vomiting, bloody stools or diarrhea. [] : Denies dysuria. [] Neurologic: Denies headache, focal weakness or sensory changes. [] Heart Score: Risk Factors: Risk Factors: DM, Current or recent (<one month) smoker, HTN, HLP, family history of CAD, obesity. Risk Scores: Score 0 - 3: 2.5% MACE over next 6 weeks - Discharge Home Score 4 - 6: 20.3% MACE over next 6 weeks - Admit for Clinical Observation Score 7 - 10: 72.7% MACE over next 6 weeks - Early Invasive Strategies Current Medications: Current Medications Medications (Trade) Dose Ordered Sig/Fabiana Start Time Stop Time Status Last Admin Dose Admin Acetaminophen (Tylenol) 650 mg 1X ONCE 05/13/20 23:30 05/13/20 23:39 DC 05/13/20 23:38 650 MG Sodium Chloride 1,000 ml @ 1,000 mls/hr 1X ONCE 05/13/20 22:00 05/13/20 22:59 DC 05/13/20 21:52 1,000 MLS/HR Allergies: Allergies: Allergies Coded Allergies Type Severity Reaction Last Updated Verified No Known Drug Allergies 06/13/14 No Physical Exam: PE: Constitutional: Well developed, well nourished, no acute distress, non-toxic appearance. [] HENT: Normocephalic, atraumatic Eyes: EOMI Neck: Normal range of motion, Supple Cardiovascular:Heart rate regular rhythm Lungs & Thorax: Bilateral breath sounds clear to auscultation [] Abdomen: Bowel sounds normal, soft, no tenderness Extremities: No tenderness, ROM intact Neurologic: Alert and oriented X 3 Current Patient Data: Labs: Laboratory Tests Test 05/13/20 21:28 05/13/20 22:03 05/14/20 03:19 Urine Collection Type Unknown Urine Color Yellow Urine Clarity Clear Urine pH 6.0 (<5.0-8.0) Urine Specific [employer] <=1.005 (1.000-1.030) Urine Protein Negative mg/dL (NEG-TRACE) Urine Glucose (UA) Negative mg/dL (NEG) Urine Ketones (Stick) Negative mg/dL (NEG) Urine Blood Moderate (NEG) Urine Nitrite Negative (NEG) Urine Bilirubin Negative (NEG) Urine Urobilinogen Dipstick 0.2 mg/dL (0.2 mg/dL) Urine Leukocyte Esterase Negative (NEG) Urine RBC 0 /HPF (0-2) Urine WBC 0 /HPF (0-4) Urine Squamous Epithelial Cells Few /LPF Urine Bacteria 0 /HPF (0-FEW) Urine Test Negative (NEG) Urine Opiates Screen Neg (NEG) Urine Methadone Screen Neg (NEG) Urine Barbiturates Neg (NEG) Urine Phencyclidine Screen Neg (NEG) Urine Amphetamine/Methamphetamine Neg (NEG) Urine Benzodiazepines Screen Neg (NEG) Urine Cocaine Screen Neg (NEG) Urine Cannabinoids Screen Neg (NEG) Urine Ethyl Alcohol Pos (NEG) White Blood Count 7.0 x10^3/uL (4.0-11.0) Red Blood Count 4.33 x10^6/uL (3.50-5.40) Hemoglobin 13.1 g/dL (12.0-15.5) Hematocrit 38.1 % (36.0-47.0) Mean Corpuscular Volume 88 fL (79-100) Mean Corpuscular Hemoglobin 30 pg (25-35) Mean Corpuscular Hemoglobin Concent 34 g/dL (31-37) Red Cell Distribution Width 13.3 % (11.5-14.5) Platelet Count 370 x10^3/uL (140-400) Neutrophils (%) (Auto) 56 % (31-73) Lymphocytes (%) (Auto) 34 % (24-48) Monocytes (%) (Auto) 7 % (0-9) Eosinophils (%) (Auto) 2 % (0-3) Basophils (%) (Auto) 1 % (0-3) Neutrophils # (Auto) 4.0 x10^3/uL (1.8-7.7) Lymphocytes # (Auto) 2.4 x10^3/uL (1.0-4.8) Monocytes # (Auto) 0.5 x10^3/uL (0.0-1.1) Eosinophils # (Auto) 0.1 x10^3/uL (0.0-0.7) Basophils # (Auto) 0.1 x10^3/uL (0.0-0.2) Sodium Level 139 mmol/L (136-145) Potassium Level 3.8 mmol/L (3.5-5.1) Chloride Level 103 mmol/L (98-107) Carbon Dioxide Level 25 mmol/L (21-32) Anion Gap 11 (6-14) Blood Urea Nitrogen 7 mg/dL (7-20) Creatinine 0.7 mg/dL (0.6-1.0) Estimated GFR (Cockcroft-Gault) 116.6 BUN/Creatinine Ratio 10 (6-20) Glucose Level 85 mg/dL (70-99) Calcium Level 8.7 mg/dL (8.5-10.1) Total Bilirubin 0.3 mg/dL (0.2-1.0) Aspartate Amino Transferase (AST) 62 U/L (15-37) H Alanine Aminotransferase (ALT) 83 U/L (14-59) H Alkaline Phosphatase 101 U/L (46-116) Troponin I Quantitative < 0.017 ng/mL (0.000-0.055) < 0.017 ng/mL (0.000-0.055) Total Protein 8.0 g/dL (6.4-8.2) Albumin 3.8 g/dL (3.4-5.0) Albumin/Globulin Ratio 0.9 (1.0-1.7) L Lipase 65 U/L (73-393) L Ethyl Alcohol Level 367 mg/dL (0-10) H Laboratory Tests 05/13/20 22:03 Laboratory Tests 05/13/20 22:03 Vital Signs: Vital Signs Date Time Temp Pulse Resp B/P (MAP) Pulse Ox O2 Delivery O2 Flow Rate FiO2 05/14/20 03:00 73 18 113/60 (77) 96 Nasal Cannula 2.0 05/13/20 21:31 98.8 98.8 EKG: EKG: [] EKG interpretation: 21: 29 on 05/13/2020 HR: 78 Sinus rhythm Regular intervals Normal axis Nonspecific ST changes Radiology/Procedures: Radiology/Procedures: [] Impression: KNEE XRAYS IMPRESSION: 1. No acute osseous abnormality of the right knee. 2. No acute osseous abnormality of the left knee. Incidental note of bipartite patella. Course & Med Decision Making: Course & Med Decision Making Pertinent Labs and Imaging studies reviewed. (See chart for details) [] Dragon Disclaimer: Dragon Disclaimer: This electronic medical record was generated, in whole or in part, using a voice recognition dictation system. Departure Departure Impression: Primary Impression: Chest wall pain Additional Impression: Alcohol intoxication Disposition: 01 HOME, SELF-CARE Condition: IMPROVED Referrals: NURIS MATT (PCP) Patient Instructions: Alcohol Intoxication Additional Instructions: Discussed results and plan of care with patient. Patient is instructed to follow up with PCP in one to 2 days. Appropriate discharge instructions given to patient to return to the ED or to seek immediate medical evaluation. Patient is instructed to return to the ED if symptoms worsen or if any concerns. Justicifation of Admission Dx: Justifications for Admission: Justification of Admission Dx: OUSMANE Henley DO May 14, 2020 03:54
[2020-05-14 04:30] VITALS: BP 103/52
== END 2020-05-14 05:00 | disposition home or self-care (01) ==
LOC: ER 21:25
DX: R07.89 Other chest pain (principal); R41.82 Altered mental status, unspecified; M22.8X2 Other disorders of patella, left knee; J45.909 Unspecified asthma, uncomplicated; F10.20 Alcohol dependence, uncomplicated; Y90.8 Blood alcohol level of 240 mg/100 ml or more
CPT/HCPCS: 36415; 73562; 80053; 80307; 81001; 81025; 83690; 84484; 85025; 96360; 99285; G0480; J7030